=== PATIENT | female | born 1970 | race Caucasian/White ===

== ENCOUNTER 2021-12-16 07:51 | Day surgery (SDC) | payer OTHER, MEDICAID, SELFPAY ==
[2021-12-16] VITALS (15 sets, daily range): BP systolic 77–130; BP diastolic 45–76; PULSE 44–72; RESP 12–20; TEMP 36.2–36.6; O2SAT 94–100; BMI 37.8
[2021-12-16] MEDS: SODIUM CHLORIDE 0.9 % (FLUSH) 10 ML SYRINGE IVF ×2 (08:10→08:35)
[2021-12-16] MEDS: LACTATED RINGERS 1000 ML 1,000 ML 100 ML IV (08:10)
[2021-12-16] MEDS: CEFAZOLIN 2 GM INJ IVP (10:28)
--- NOTE | 2021-12-16 11:47 | W.ANESCHARGE ---
Anesthesia Charges Start Date/Time Anesthesia Start Date: 12/16/21 Anesthesia Start Time: 10:17 Stop Date/Time Anesthesia Stop Date: 12/16/21 Anesthesia Stop Time: 11:51 Summary Emergency: No
--- NOTE | 2021-12-16 11:47 | PM.ORPRC ---
Procedure Note Date of procedure: 12/16/21 Procedure: SURGEON: Brian Bautista MD SENIOR SUSTAINABILITY ADVISOR: GUANACO Kearns PREOPERATIVE DIAGNOSIS: Left knee medial meniscus root tear POSTOPERATIVE DIAGNOSIS: Left knee medial meniscus root tear NAME OF OPERATION: Left knee arthroscopic medial meniscus root repair ANESTHESIA: Spinal ESTIMATED BLOOD LOSS: 0 mL COMPLICATIONS: None SPECIMENS: None DRAINS: None PREOPERATIVE ANTIBIOTICS: Ancef 2 gram INDICATIONS: The patient is a 51-year-old female with a history of left knee medial pain. MRI scan is consistent with a medial meniscus root tear. Despite appropriate nonoperative management, including activity modification, antiinflammatories, aaei-bpa-fabcqtx pain medication, bracing, physical therapy, and injections they continue to have pain and disability. Operative intervention was offered. The risks, benefits and expected outcomes were discussed in detail. These included but were not limited to: Infection, bleeding, injury to blood vessel or nerve, venous thromboembolism. All questions were answered to their satisfaction. PROCEDURE: Spinal anesthesia was administered. The patient was placed supine on the operating room table. The left lower extremity was prepped and draped in the usual sterile fashion. The limb was exsanguinated with the Vance bandage. The pneumatic tourniquet was inflated to 300 mmHg. A standard anterolateral portal was established. The arthroscope was introduced. The working portal was established anteromedially. Diagnostic arthroscopy was performed with findings as follows: The suprapatellar pouch is normal. Articular surface on the patella is normal. Articular surface on the trochlea is normal. The medial gutter is normal. The medial compartment shows a small patch of focal grade 3 change on the medial femoral condyle, normal articular cartilage on the medial tibial plateau. The medial meniscus has a root tear, detaching it from the tibia. The notch shows the ACL to be intact. The lateral compartment shows normal articular cartilage on the lateral femoral condyle and lateral tibial plateau. The lateral meniscus is normal. The lateral gutter is normal. A minimal amount of the posterior horn of the medial meniscus was debrided with the shaver. Unstable chondral flaps on the medial femoral condyle, were debrided with the shaver, taken to a stable base. The knee scorpion was used to pass a fiber link x 2 in the posterior horn of the medial meniscus. The tibial drill guide was used over the footprint of the root. A longitudinal incision over the anteromedial face of the tibia was placed. The flip cutter was drilled into the footprint. The flip cutter was flipped and back cut 10 mm. It was removed and exchanged for a fiber stick. The fiber stick suture loop was brought out the anteromedial portal and was used to shuttle both of the fiber link luggage tag sutures on the posterior horn out the anteromedial tibia. We then tensioned the sutures and fixed them to the tibia with a SwiveLock anchor. This provided an excellent repair of the posterior tibial attachment of the medial meniscus to its anatomic footprint. The power pick was used to microfracture the notch both medially and laterally. Arthroscopic instruments were removed, the portal sites were Steri-Stripped closed, the incision over the tibia was closed with 3-0 Vicryl and 4-0 Monocryl, the knee was infiltrated with 30 mL of 0.25% Marcaine without epinephrine. A dry dressing was applied, the tourniquet was released. Sponge and needle counts were correct x 2. The patient tolerated the procedure well. There were no apparent complications. They were carefully transferred to the hospital bed and taken to the postanesthesia care unit in satisfactory condition. PLAN: The patient will be discharged to home. They will be strict nonweightbearing on the lower extremity for 6 weeks postoperatively. Range of motion will be unrestricted. They will follow up in 1-2 weeks for a wound check.
--- NOTE | 2021-12-16 11:51 | P.NB_ITS ---
Nerve Block Nerve Block Time Seen by Provider: 11:36 Date Seen: 12/16/21 Type of block requested by surgeon for post-operative analgesia: geniculars Side: left Time out performed: Yes Verification of patient name: Yes Verification of date of : Yes Site marking: site marked Name of person performing procedure: DARIEL Skelton Continuous monitoring Was continuous monitoring of O2 sat, B/P, quality assurance monitor final, recorded every 15 minutes?: Yes Procedure Checklist: sterile prep, needles and gloves Ultrasound guided. Images saved: No Medications given in 5ml increments after negative aspiration: Ropivicaine %: 0.5 mL: 10 Needle gauge: 25 Decadron (mg): 10 Precedex (mcg): 20 Patient tolerated procedure well: No Block Charges Block Charge (with Pro Fee): Genicular Nerve Block Use of Ultrasound Machine for Block: No
[2021-12-16] MEDS: fentaNYL 100 MCG/2 ML inj 50 MCG IVP ×2 (11:54→12:06)
--- NOTE | 2021-12-16 12:11 | W.ANESCHARGE ---
Anesthesia Charges Start Date/Time Anesthesia Start Date: 12/16/21 Anesthesia Start Time: 10:17 Stop Date/Time Anesthesia Stop Date: 12/16/21 Anesthesia Stop Time: 11:51 Summary Emergency: No
--- NOTE | 2021-12-16 12:12 | SUR.PHASEI ---
pt having lower back pain where spinal was placed denies any knee pain medication given for pain o2 placed via nc pts bp remains low hob lowered and pt placed in [place] postion fluids increased ill watch bp and treat as needed
[2021-12-16] MEDS: OxyCODONE/APAP 5-325 TABLET PO (12:35)
== END 2021-12-16 11:38 | disposition home or self-care (01) ==
PROVIDERS: PCP Physician Assistant; Visit Provider Orthopaedic Surgery
PROC: (CPT 29882; principal; 2021-12-16 10:30)
DX: M23.222 Derangement of posterior horn of medial meniscus due to old tear or injury, left knee (principal)
CPT/HCPCS: 29881; 01400; 64454; A9270; C1713; J0690; J1100; J2250; J2370; J2400; J2704; J2795; J3010; J7120; L1833

== ENCOUNTER 2022-03-14 08:30 | Outpatient (RCR) | payer OTHER, MEDICAID, SELFPAY ==
--- NOTE | 2022-01-27 09:51 | PT.OPEX ---
PT [place] [facility] PT [facility] Eval Start: 01/27/22 07:52 Freq: Status: Active Protocol: Document 01/27/22 07:52 KLLee (Rec: 01/27/22 09:03 KLV [id number]) E-signed By Marni Dye, PT Physical Therapy Outpatient Evaluation Insurance Information Recert Due Date 03/28/22 Insurance Name Medicaid,Other; See Comments Insurance Information/Comments [facility] choice Medical Diagnosis Left knee scope: medial meniscus root repair DOS Treating Diagnosis Left knee pain, limited knee ROM, impaired L LE strength, antalgic gait Referring MD Bautista Subjective Subjective Ceci reports to PT s/p 6 weeks left medial meniscus root repair DPS 12/16/21. No known injury just gradually started hurting in July 2021. She has been NWB up until this point with B crutches. She had a follow up with Dr. Bautista yesterday who cleared her to progress to WBAT, unrestricted ROM and gradual progression/return to activity as tolerated. She will follow up with MD in 6 weeks. She is cleared to return to work when she feels she is able. She started walking with single crutch yesterday. Overall feeling pretty good, just weak and unsteady at times. 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 She has not done any exercises up until this point . No longer icing but was for 4 weeks. Very occasionally taking OTC pain meds at night. 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 Precautions Therapy Limitations/Systems Review Not Limited Objective Other/Pertinent Objective Knee ROM: -R 0-128 -L 0-12-53 pre 0--71 post Denies radicular symptoms Intact to light touch throughout L LE Incisions healing well: no signs/symptoms of infection Moderate swelling localized around knee, no bruising or erythema Patellar mobility: hypomobile all directions Gait: able to ambulate with single crutch with good stability, initially mid foot strike and limited terminal knee extension but improves with practice SL balance: unable at this time Functional Test Performed & Score LEFS: 27/80 Assessment Assessment/Impression Pt presents with signs and symptoms consistent with s/p L medial meniscus root repair. DOS: 12/16/21. She is now WBAT and may progress ROM and strength as tolerated without restrictions at this time. Anticipated deficits/ impairments in pain, ROM, and strength. Pt would benefit from skilled PT interventions to facilitate return to PLOF including ADLs (donning/ doffing shoes and socks), A/D stairs reciprocally and return to work tasks including pushing/pulling 25-50lb, twisting/turning, squatting/ bending, liftin 25-50lb floor to waist. Primary Functional Limitations ADLs (donning/doffing shoes and socks), A/D stairs reciprocally and return to work tasks including pushing/ pulling 25-50lb, twisting/ turning, squatting/bending, liftin 25-50lb floor to waist Plan of Care Rehabilitation Potential Good Physical Therapy Goals By 4 weeks (04/14/21) Pt will be able to ascend/ descend 1 flight of stairs in order to perform ADLs pain free. Pt will demonstrate full and pain free knee ROM in order to perform all ADLs including don/doffing shoes/socks By 8 weeks (05/12/21) Pt will exhibit 9 pt improvement in LEFS Outcome measure to demonstrate functional improvement and progress towards goals. Pt will tolerate gradual progression back to ADLs with <2/10 pain Patient will transition from crutches to independent gait with normal mechanics. Patient will be able to stand for up to 4 hours with <2/10 pain in order to gradually return to work Patient will demonstrate good squatting mechanics to lift up to 50lb from floor to waist with <2/10 knee pain in order to return to work related tasks. Treatment Plan/Direct Interventions Gait Training,Ice/Cold/ Vasopneumatic,Joint Mobilization,Manual Therapy, Neuromuscular Re-ed,Self-Care/ Home Management,Therapeutic Activities,Therapeutic Exercises Frequency/Duration 2x/wk for 2 weeks, 1x/wk for 4 weeks with additional 2-3 sessions prn based on progress Patient Will Be Discharged From Therapy Completion of LTG(s), Independent w/HEP, Independently Progressing Evaluation Billing Untimed Code Treatment Minutes 15 Complexity Low Certification Information Initial Certification Date 01/27/22 Ending Certification Date 03/28/22 Provider Signature Shows Agreement With POC & Medical Necessity Physician Signature & Date Requested Please Sign/Date Here Physician Comment/Change : Physician NPI Number #
== END 2022-03-14 09:48 | disposition home or self-care (01) ==
PROVIDERS: PCP Physician Assistant; Visit Provider Orthopaedic Surgery
DX: Z98.890 Other specified postprocedural states (principal); Z51.89 Encounter for other specified aftercare
CPT/HCPCS: 97110; 97161

== ENCOUNTER 2022-11-19 20:57 | Emergency (ER) | payer OTHER, MEDICAID, SELFPAY ==
[2022-11-19 21:06] VITALS: BP 120/75; PULSE 89; RESP 18; TEMP 36.7; O2SAT 99; BMI 37.6
--- NOTE | 2022-11-19 21:10 | ED.GENADULT ---
HPI - General Adult General Chief complaint: Extremity Pain/Injury, Lower Stated complaint: R knee pain, thigh pain Time Seen by Provider: 11/19/22 21:09 History of Present Illness HPI narrative: CC: Pain behind right knee pain for last month. worse tonight. able to bear some weight on it. denies injury 52-year-old woman presenting to the emergency department with complaint of right knee pain posterior aspect over this last month. Increasing tonight. No specific injury. She does recall about a month ago experiencing rather severe Charley horse in the posterior right thigh and since that time has had discomfort in the knee. Also sense of fullness behind the knee. Again just got really bad tonight. Does have a history of osteoarthritis on review of record with meniscectomy on the left knee. History of obesity status post gastric bypass. Related Data Home Medications Medication Instructions Recorded Confirmed ferrous sulfate 325 mg (65 mg 325 mg PO DAILY 11/03/21 11/21/22 iron) tablet levothyroxine 112 mcg tablet 112 mcg PO DAILY 11/03/21 11/21/22 lisinopril 20 mg tablet 20 mg PO DAILY 11/03/21 11/21/22 hydrochlorothiazide 12.5 mg tablet 12.5 mg PO DAILY 11/19/22 11/21/22 Allergies Allergy/AdvReac Type Severity Reaction Status Date / Time hydrocodone [From [place]] Allergy Mild Lip Verified 11/21/22 13:23 Swelling NSAIDS (Non-Steroidal Allergy Verified 11/21/22 13:23 Anti-Inflamma Review of Systems Status of ROS: Reports: 6 or more systems reviewed and unremarkable except as noted in History and below PFSH PFS Medical History Raynauds syndrome ?I73.00 - Raynaud's syndrome without gangrene (ICD-10) Obesity ?E66.9 - Obesity, unspecified (ICD-10) Hypothyroidism ?E03.9 - Hypothyroidism, unspecified (ICD-10) Hypertension ?I10 - Essential (primary) hypertension (ICD-10) Osteoarthritis of left knee ?M17.12 - Unilateral primary osteoarthritis, left knee (ICD-10) Tear of medial meniscus of left knee ?S83.242A - Other tear of medial meniscus, current injury, left knee, initial encounter (ICD-10) Surgical History S/P partial hysterectomy ?Z90.711 - Acquired absence of uterus with remaining cervical stump (ICD-10) S/P cholecystectomy ?Z90.49 - Acquired absence of other specified parts of digestive tract (ICD-10) S/P gastric bypass ?Z98.84 - Bariatric surgery status (ICD-10) Social History Smoking Status: Never smoker Do you use any of these nicotine containing products: None How often do you have a drink containing alcohol: monthly or less Alcohol type: hard liquor How many standard drinks containing alcohol do you have on a typical day: 1 or 2 AUDIT-C Alcohol total score: 1 Non-prescribed substance use: denies use Caffeine: Yes (COFFEE) Are you using contraception or practicing any form of control: No (HYSTERECTOMY) Exam Narrative: Exam Narrative: Knees propped on a pillow. Good strength to resisted flexion. I do not feel defect in the biceps femoris tendons. She is tender though to palpation in the lower posterior thigh. Also somewhat behind the knee. I do not appreciate an effusion anteriorly. No erythema. Prominent vasculature/varicosity crossing anteriorly. Rupa's is negative. She is tender though enough that I think limits good knee exam. No laxity to varus or valgus stress of the knee. No significant lower extremity edema. Const: Vital Signs, click to edit/add: Vital Signs - 24 hr 11/19/22 21:06 Temperature 98.0 F Pulse Rate [Right Pulse Oximeter] 89 Respiratory Rate 18 Blood Pressure [Ri ght Upper Arm] 120/75 Pulse Oximetry 99 Oxygen Delivery Me thod Room Air Documenting provider has reviewed patient's vital signs: yes Course Vital Signs Vital signs: Initial Vital Signs Temperature 98.0 F 11/19/22 21:06 Temperature Source Temporal Artery Scan 11/19/22 21:06 Pulse Rate 89 11/19/22 21:06 Respiratory Rate 18 11/19/22 21:06 Blood Pressure 120/75 11/19/22 21:06 Blood Pressure Mean 90 11/19/22 21:06 Blood Pressure Position Sitting 11/19/22 21:06 Pulse Oximetry 99 11/19/22 21:06 Oxygen Delivery Method Room Air 11/19/22 21:06 Vital Signs Temperature 98.0 F 11/19/22 21:06 Pulse Rate 89 11/19/22 21:06 Respiratory Rate 18 11/19/22 21:06 Blood Pressure 120/75 11/19/22 21:06 Pulse Oximetry 99 11/19/22 21:06 Oxygen Delivery Method Room Air 11/19/22 21:06 Temperature 98.0 F 11/19/22 21:06 Pulse Rate 89 11/19/22 21:06 Respiratory Rate 18 11/19/22 21:06 Blood Pressure 120/75 11/19/22 21:06 Pulse Oximetry 99 11/19/22 21:06 Oxygen Delivery Method Room Air 11/19/22 21:06 Medical Decision Making MDM Narrative Medical decision making narrative: I wonder if may have sustained a hamstring strain in this charley horse she described. Differential also includes Reed cyst plus or minus rupture, meniscal injury, osteoarthritis She would like some relief of pain. I am not convinced of a true allergy with hydrocodone. She would like or immediate relief initially requesting injectable hydromorphone as options were discussed. Decided she preferred to go with oral and so was given 2 tabs of Percocet. This did seem to take the edge off and allow her to transition more comfortably. Did have an program director/air personality here and so we did a quick look ultrasound. I did not think this was going to show thrombus of any sort in the right leg but was to evaluate for Reed cyst. Per my discussion with them it was unremarkable. Later upon review by Radiology a suspected cystic structure in the popliteal fossa was noted --see below. Final Report: INDICATION: Posterior knee pain TECHNIQUE: Ultrasound venous duplex lower right extremity. Compression venous exam was performed using cesar-scale, color Doppler, and spectral Doppler imaging. COMPARISON: None. FINDINGS: Sonographic imaging demonstrates the right common femoral, deep femoral, superficial femoral, popliteal, posterior tibial and greater saphenous and the contralateral left common femoral veins to be fully compressible with normal color Doppler blood flow. Small hypoechoic collection, possibly fluid in popliteal space measuring 4.8 x 0.5 x 1.8 cm. This could represent a small popliteal cyst. IMPRESSION: Probable right popliteal cyst, as above, otherwise normal right lower extremity venous ultrasound, no sign of deep venous thrombosis. Dictated by Zoran Ellison MD @ 11/19/2022 10:22:47 PM With initially normal report and delayed radiology over-read of ultrasound, I did proceed with two view x-ray. Looking for bony abnormalities/spurring in particular, possible avulsion fracture. There was posterior radiodense structure behind the knee and what I perceived on my read of rather ragged appearing upper tibial plateau posteriorly though in my discussion with Radiology confirmed incidental finding. Nothing indicative of avulsion fracture. See patient discharge plan Medical Records Medical records reviewed: Yes I reviewed the patient's medical records Discharge Plan Discharge Clinical Impression: Posterior right knee pain, Popliteal cyst Patient Disposition: Home w/ Parent or Adult Condition: Stable Additional Instructions: At this point I would treat as a hamstring strain. Please see handout for exercises and treatment to do regularly. Follow-up if not improved in 10 - 14 days. Apply ice packs 2 - 3 times daily over the next few days. Percocet from [facility] * can follow-up with orthopedics regarding this cystic structure if it continues to be an issue. This may be contributing to pain and I would think at least to that sense of fullness here. Prescriptions: No Action levothyroxine 112 mcg tablet 112 mcg PO DAILY ferrous sulfate 325 mg (65 mg iron) tablet 325 mg PO DAILY lisinopril 20 mg tablet 20 mg PO DAILY hydrochlorothiazide 12.5 mg tablet 12.5 mg PO DAILY Follow Up/Referrals: Faby Whittington PA [Referring] - Stand Alone Forms: My[facility] Info Instructions
--- NOTE | 2022-11-19 21:17 | CRLHL7_ITS ---
For Patients: As a result of the Century Cures Act, medical imaging exams and procedure reports are released immediately into your electronic medical record. You may view this report before your referring provider. If you have questions, please contact your health care provider. INDICATION: Posterior knee pain TECHNIQUE: Ultrasound venous duplex lower right extremity. Compression venous exam was performed using cesar-scale, color Doppler, and spectral Doppler imaging. COMPARISON: None. FINDINGS: Sonographic imaging demonstrates the right common femoral, deep femoral, superficial femoral, popliteal, posterior tibial and greater saphenous and the contralateral left common femoral veins to be fully compressible with normal color Doppler blood flow. Small hypoechoic collection, possibly fluid in popliteal space measuring 4.8 x 0.5 x 1.8 cm. This could represent a small popliteal cyst. IMPRESSION: Probable right popliteal cyst, as above, otherwise normal right lower extremity venous ultrasound, no sign of deep venous thrombosis. Dictated by Zoran Ellison MD @ 11/19/2022 10:22:47 PM (Electronically Signed)
[2022-11-19] MEDS: OxyCODONE/APAP 5-325 TABLET 2 TAB PO (21:49)
--- NOTE | 2022-11-19 21:54 | CRLHL7_ITS ---
For Patients: As a result of the Cures Act, medical imaging exams and procedure reports are released immediately into your electronic medical record. You may view this report before your referring provider. If you have questions, please contact your health care provider. INDICATION: Posterior knee pain, Posterior knee pain fullness TECHNIQUE: Knee radiograph 2 views right COMPARISON: None FINDINGS: Bone: No acute fractures or aggressive bone lesions are identified. Joint: The medial, lateral, and patellofemoral compartments are unremarkable. No significant knee effusion is seen. Soft tissue: Unremarkable. No radiopaque foreign bodies are seen. IMPRESSION: 1. No acute osseous injuries or abnormalities are noted. Dictated by: Jason Sun MD @ 11/19/2022 22:34:38 (Electronically Signed)
== END 2022-11-19 23:35 | disposition home or self-care (01) ==
PROVIDERS: Emergency Provider Family Medicine; PCP Student in an Organized Health Care Education/Training Program
DX: M71.21 Synovial cyst of popliteal space [Baker], right knee (principal)
CPT/HCPCS: 73560; 93971; 99283; 99284; A9270

== ENCOUNTER 2022-11-23 15:15 | Outpatient (CLI) | payer OTHER, MEDICAID, SELFPAY ==
--- NOTE | 2022-11-23 15:30 | MR_ITS ---
[address] [address] Phone:?[phone] Fax:?[phone] Referring Physician Information: Sharif Garcia [address] [facility] [address] Phone:?[phone] Fax:?[phone] Patient:?Ceci Borjas D.O.B:?1970 Sex:?Female Phone:?[phone] [facility] MRN:?[id number] Exam Date:?11/23/2022 EXAM: MRI of the RIGHT KNEE, without contrast CLINICAL HISTORY: Right knee pain. Evaluate for medial meniscal pathology. COMPARISONS: None available. TECHNICAL: MR sequences of the right knee: sagittals: PD, PDFS coronals: PD, STIR axials: PD, T2 FS CONTRAST: None SEDATION: None FINDINGS: Bones: No fracture, bone marrow contusion, or other suspicious bone marrow signal abnormality. 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 Retinacula: The medial and lateral retinacula are intact. Fat pads: The infrapatellar, quadriceps, and prefemoral fat pads are unremarkable. Knee joint: Effusion: Small right knee joint effusion. Popliteal cyst: None. Intra-articular bodies: None. Posteromedial corner: The semimembranosus and pes anserine tendons are intact. Medial compartment: Medial meniscus: There is ill-defined high-grade radial tear of the posterior root of the medial meniscus with immediately adjacent tibial bone marrow edema best seen on coronal series 8 images 21 and 22 and sagittal series 5 and 6 image 18. There is 3 mm of medial meniscal extrusion best seen on coronal series 7 image 18. Cartilage: Intact. Lateral compartment: Lateral meniscus: Intact. Cartilage: Intact. Ligaments: Anterior cruciate ligament: Intact. Posterior cruciate ligament: Intact. Medial collateral ligament: Intact. Posterior oblique ligament: Intact. Fibular collateral ligament: Intact. Posterolateral corner: The distal biceps femoris tendon, iliotibial band, popliteus tendon, popliteus muscle, popliteofibular ligament, and arcuate ligament are intact. Extensor mechanism: Patellar tendon: Intact. Quadriceps tendon: Intact. IMPRESSION: 1. Ill-defined high-grade radial tear of the posterior root of the medial meniscus with immediately adjacent tibial bone marrow edema and 3 mm of medial meniscal extrusion. 2. 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 3. No ligamentous injury or lateral meniscal pathology of the right knee. RCB Electronically signed on 11/24/2022 6:46:00 AM by Gary Zamora M.D. Addendum A Addendum: In addition, there is a moderately sized popliteal cyst. Electronically signed on 11/28/2022 9:54:00 AM by Gary Zamora M.D.
== END 2022-11-23 15:16 | disposition home or self-care (01) ==
PROVIDERS: PCP Student in an Organized Health Care Education/Training Program; Visit Provider Physician Assistant
DX: M25.561 Pain in right knee (principal); S83.241A Other tear of medial meniscus, current injury, right knee, initial encounter; M94.261 Chondromalacia, right knee
CPT/HCPCS: 73721

== ENCOUNTER 2022-12-08 06:08 | Day surgery (SDC) | payer OTHER, MEDICAID, SELFPAY ==
[2022-12-08] VITALS (14 sets, daily range): BP systolic 78–127; BP diastolic 45–77; PULSE 45–68; RESP 14–18; TEMP 36.1–36.8; O2SAT 95–100; BMI 36.0
[2022-12-08] MEDS: LACTATED RINGERS 1000 ML 1,000 ML 100 ML IV (07:02)
[2022-12-08] MEDS: SODIUM CHLORIDE 0.9 % (FLUSH) 10 ML SYRINGE IVF (07:02)
[2022-12-08] MEDS: CEFAZOLIN 2 GM INJ IVP (08:00)
[2022-12-08] MEDS: BUPIVACAINE 0.25% 30 ML INJECTION (08:33)
--- NOTE | 2022-12-08 08:41 | P.ORPRC_ITS ---
Procedure Note Date of procedure: 12/08/22 Procedure: PREOPERATIVE DIAGNOSIS: Right knee medial meniscus root tear POSTOPERATIVE DIAGNOSIS: Right knee medial meniscus tear, medial femoral condyle grade 4 lesion NAME OF OPERATION: Right knee diagnostic arthroscopy, medial femoral condyle chondroplasty SURGEON: Brian Bautista MD DEPUTY CHIEF MAGISTRATE: GUANACO Kearns ANESTHESIA: Spinal ESTIMATED BLOOD LOSS: 0 mL COMPLICATIONS: None SPECIMENS: None DRAINS: None PREOPERATIVE ANTIBIOTICS: Ancef 2 gram INDICATIONS: The patient is a 52-year-old with a history of right knee medial pain. MRI scan is consistent with a medial meniscus root tear. Despite appropriate nonoperative management, including activity modification, antiinflammatories, [id number]-texloim pain medication, bracing, physical therapy, and injections they continue to have pain and disability. Operative intervention was offered. The risks, benefits and expected outcomes were discussed in detail. These included but were not limited to: Infection, bleeding, injury to blood vessel or nerve, venous thromboembolism. All questions were answered to their satisfaction. PROCEDURE: Spinal anesthesia was administered. The patient was placed supine on the operating room table. The right lower extremity was prepped and draped in the usual sterile fashion. The limb was exsanguinated with the Vance bandage. The pneumatic tourniquet was inflated to 300 mmHg. A standard anterolateral portal was established. The arthroscope was introduced. The working portal was established anteromedially. Diagnostic arthroscopy was performed with findings as follows: The suprapatellar pouch is normal. Articular surface on the patella shows a tiny area over the median ridge with a grade 2 fissure. Over the far proximal aspect there is an area of more meaningful grade 2/3 change. Articular surface on the trochlea is normal. The medial has a minimal amount of hyperemic synovitis. The medial compartment shows a large, focal area of grade 4 change measuring 10 mm medial lateral by 18 mm anterior-posterior. There is grade 2 change on the medial tibial plateau. The medial meniscus is detached from the posterior tibia. The notch shows the ACL to be intact. The lateral compartment shows normal articular cartilage on the lateral femoral condyle and lateral tibial plateau. The lateral meniscus is normal. The lateral gutter is normal. Unstable articular cartilage flaps on the edges of the medial femoral condyle defect were debrided with the shaver, taken to a stable base. Given the medial femoral condyle lesion, it was felt that root repair was not indicated. Arthroscopic instruments were removed, the portal sites were Steri-Stripped closed, the knee was infiltrated with 30 mL of 0.25% Marcaine without epinephrine. A dry dressing was applied, the tourniquet was released. Sponge and needle counts were correct x 2. The patient tolerated the procedure well. There were no apparent complications. They were carefully transferred to the hospital bed and taken to the postanesthesia care unit in satisfactory condition. PLAN: The patient will be discharged to home. They may weightbear as tolerates. Range of motion will be unrestricted. They will follow up in the office next week for a wound check.
--- NOTE | 2022-12-08 08:53 | W.ANESCHARGE ---
Anesthesia Charges Start Date/Time Anesthesia Start Date: 12/08/22 Anesthesia Start Time: 07:53 Stop Date/Time Anesthesia Stop Date: 12/08/22 Anesthesia Stop Time: 08:44
[2022-12-08] MEDS: ePHEDrine sulfate 5 MG/ML inj IVP (09:01)
[2022-12-08] MEDS: OxyCODONE/APAP 5-325 TABLET 1 TAB PO (10:15)
== END 2022-12-08 10:40 | disposition home or self-care (01) ==
PROVIDERS: PCP Student in an Organized Health Care Education/Training Program; Visit Provider Orthopaedic Surgery
PROC: (CPT 29882; principal; 2022-12-08 07:45)
DX: S83.241A Other tear of medial meniscus, current injury, right knee, initial encounter (principal); M21.951 Unspecified acquired deformity of right thigh
CPT/HCPCS: 29877; 1400; A9270; J0665; J0690; J2250; J2371; J2405; J2704; J3010; J7120

== ENCOUNTER 2022-12-15 14:03 | Outpatient (RCR) | payer OTHER, MEDICAID, SELFPAY | END 2023-04-14 23:59 | disposition home or self-care (01) | PROVIDERS: PCP Student in an Organized Health Care Education/Training Program; Visit Provider Orthopaedic Surgery | DX: S83.206A Unspecified tear of unspecified meniscus, current injury, right knee, initial encounter (principal); Z98.890 Other specified postprocedural states; M25.561 Pain in right knee; M62.81 Muscle weakness (generalized); Z47.1 Aftercare following joint replacement surgery; Z51.89 Encounter for other specified aftercare | CPT/HCPCS: 97110; 97161 ==

== ENCOUNTER 2023-01-17 09:00 | Day surgery (SDC) | payer OTHER, MEDICAID, SELFPAY ==
[2023-01-17] VITALS (24 sets, daily range): BP systolic 91–139; BP diastolic 46–84; PULSE 42–69; RESP 12–16; TEMP 35.9–36.9; O2SAT 93–100; BMI 38.5
[2023-01-17] MEDS: ACETAMINOPHEN 500 MG TABLET 1000 MG PO ×3 (09:30→20:44)
[2023-01-17] MEDS: OXYCODONE (CR) 10 MG TAB.ER.12H PO (09:30)
[2023-01-17] MEDS: LACTATED RINGERS 1000 ML 1,000 ML 100 ML IV (09:45)
[2023-01-17] MEDS: MIDAZOLAM HCL 1 MG/ML inj IVP (10:45)
[2023-01-17] MEDS: fentaNYL 100 MCG/2 ML inj IVP (10:45)
--- NOTE | 2023-01-17 10:50 | SUR.PREOP ---
TIME?OUT:?1042 PT/RN/MDA?VERIFICATION?OF?SURGICAL?SITE,?PROCEDURE,?AND?CONSENT OBTAINED?PRIOR?TO?INVASIVE?PROCEDURE.
--- NOTE | 2023-01-17 10:55 | P.NB_ITS ---
Nerve Block Nerve Block Time Seen by Provider: 10:50 Date Seen: 01/17/23 Type of block requested by surgeon for post-operative analgesia: geniculars Side: right Time out performed: Yes Verification of patient name: Yes Verification of date of : Yes Site marking: site marked Name of person performing procedure: Jeremias Continuous monitoring Was continuous monitoring of O2 sat, B/P, nuclear monitoring technician, recorded every 15 minutes?: Yes Procedure Checklist: sterile prep, needles and gloves Medications given in 5ml increments after negative aspiration: Ropivicaine %: 0.5 mL: 9 Needle gauge: 25 Patient tolerated procedure well: Yes Block Charges Block Charge (with Pro Fee): Genicular Nerve Block Use of Ultrasound Machine for Block: No
--- NOTE | 2023-01-17 10:55 | P.NB_ITS ---
Nerve Block Nerve Block Time Seen by Provider: 10:50 Date Seen: 01/17/23 Type of block requested by surgeon for post-operative analgesia: adductor canal Side: right Time out performed: Yes Verification of patient name: Yes Verification of date of : Yes Site marking: site marked Name of person performing procedure: Jeremias Continuous monitoring Was continuous monitoring of O2 sat, B/P, radiographer cardiac catheterization, recorded every 15 minutes?: Yes Procedure Checklist: sterile prep, needles and gloves Ultrasound guided. Images saved: Yes Medications given in 5ml increments after negative aspiration: Ropivicaine %: 0.5 mL: 20 Needle gauge: 20 Decadron (mg): 10 Precedex (mcg): 25 Patient tolerated procedure well: Yes Additional comments: Needle noted adjacent to nerve Block Charges Block Charge (with Pro Fee): Femoral Nerve Use of Ultrasound Machine for Block: Yes- US Guidance/pain block
--- NOTE | 2023-01-17 10:56 | W.ANESCHARGE ---
Anesthesia Charges Start Date/Time Anesthesia Start Date: 01/17/23 Anesthesia Start Time: 11:05 Stop Date/Time Anesthesia Stop Date: 01/17/23 Anesthesia Stop Time: 13:25
[2023-01-17] MEDS: TRANEXAMIC ACID 100 MG/ML INJ 1000 MG IV (11:17)
[2023-01-17] MEDS: CEFAZOLIN 2 GM INJ IVP (11:20)
--- NOTE | 2023-01-17 11:41 | SUR.OPER ---
PATIENT QUESTIONS ANSWERED SATISFACTORILY PREOPERATIVELY. PATIENT BROUGHT TO OR #3 PER CART AFTER ADMINISTRATION OF A BLOCK. Patient positioned supine on OR #3 bed. The perioperative team supported arms bilaterally on arm boards. Final approval of positioning by surgeon.
--- NOTE | 2023-01-17 12:40 | CRLHL7_ITS ---
For Patients: As a result of the Cures Act, medical imaging exams and procedure reports are released immediately into your electronic medical record. You may view this report before your referring provider. If you have questions, please contact your health care provider. Indication: POST OP TKA Technique: Two views right knee Findings/Impression: Hardware from a right total knee arthroplasty is in satisfactory position. Bone alignment is normal. No sign of acute fracture. Postop changes are within normal limits. Dictated by Vernon Cosme MD @ 01/18/2023 8:26:05 AM (Electronically Signed)
--- NOTE | 2023-01-17 12:42 | P.ORPRC_ITS ---
Procedure Note Date of procedure: 01/17/23 Procedure: PREOPERATIVE DIAGNOSIS: Right knee osteoarthritis POSTOPERATIVE DIAGNOSIS: Right knee osteoarthritis NAME OF OPERATION: Right total knee arthroplasty SURGEON: Brian Bautista MD [employer] TR[employer] DRIVER: Giuliana Ramos PA-C ANESTHESIA: Spinal ESTIMATED BLOOD LOSS: 0 mL COMPLICATIONS: None SPECIMENS: None DRAINS: None PREOPERATIVE ANTIBIOTICS: Ancef 2 grams, antibiotic impregnated cement IMPLANTS: 1. J&J Attune #4 posterior stabilized femur 2. # 3 fixed-bearing revision tibia with a 14 mm x 50 mm cemented stem 3. # 4 posterior stabilized, 5 mm fixed-bearing polyethylene 4. 35 patella INDICATIONS: The patient is a 52-year-old with a longstanding history of severe, unrelenting right knee pain secondary to a medial meniscus root tear and grade 3/4 lesion on the medial femoral condyle. Despite appropriate nonoperat en management, including activity modification, anti-inflammatories, gyxz-sdi-ldiacok pain medication, bracing, physical therapy, and injections they continue to have pain and disability. Operative intervention was offered. The risks, benefits and expected outcomes were discussed in detail. These included but were not limited to: Infection, bleeding, injury to blood vessel or nerve, venous thromboembolism. All questions were answered to their satisfaction. Use of an diploma dental assistant was necessary throughout the case for patient positioning and safety, soft tissue retraction, and closure. PROCEDURE: Spinal anesthesia was administered. The patient was placed supine on the operating table. The diploma dental assistant made sure the patient was positioned appropriately. The lower extremity was prepped and draped in the usual sterile fashion. The limb was exsanguinated with the Vance bandage. The pneumatic tourniquet was inflated to 300 mmHg. A standard anterior incision was made with the knee in flexion. Subcutaneous dissection was sharply taken through fascial layer #1. Full-thickness medial and lateral flaps were elevated. The diploma dental assistant retracted the soft tissues and protected them throughout the case. A standard medial parapatellar approach was made. The patella was everted. The infrapatellar fat pad was preserved. The menisci and cruciate ligaments were sharply d?brided. Marginal osteophytes were d?brided with the rongeur. The drill was used to penetrate the femoral canal. The canal was aspirated and irrigated with pulse lavage. The intramedullary femoral guide was placed for a 5-degree valgus cut, removing 10 mm off the distal femur. The saw was used to make the cut. Whitesides line and the trans epicondylar axis were marked. The femoral sizing guide was pinned onto the distal femur. Three degrees of external rotation nicely parallels the transepicondylar axis. Pins were placed for posterior referencing. The four-in-one cutting guide was pinned onto the d istal femur. The anterior, posterior, and chamfer cuts were made. The diploma dental assistant protected the collateral ligaments. The box cutting guide was pinned. The box cuts were made. The boxed trial was placed and was an excellent fit. Drill holes for the lugs were made. Attention was then turned to the proximal tibia. The extramedullary tibial guide was placed for a neutral varus/valgus cut with 5 degrees of posterior slope, removing 2 mm based off the medial tibial surface. The diploma dental assistant protected the collateral ligaments and the neurovascular bundle. The saw was used to make the cut. Trial components were placed. The knee was nicely balanced in both flexion and extension. The trial components were removed. The tray was placed in appropriate rotation, parallel to our tibial cutting pins. It was pinned by the diploma dental assistant. The drill x2 were used. The trial stemmed tibial tray was placed. The punch was used. The trial was removed. The punch was used again. We placed a bone plug in the femoral canal. Attention was then turned to the patella. [place] patellar thickness was 20.5 mm. The lobster claw resection guide was used with the 7.5 mm isabel. The saw was used to make the cut. Drill holes were made by the diploma dental assistant. The trial was placed and was an excellent fit. Cancellous surfaces were irrigated with pulse lavage and thoroughly dried by the diploma dental assistant. We cemented the tibial component, then the femoral component. We impacted the 5 mm polyethylene onto the tibial tray. The knee was brought into full extension. We then cemented the patellar component. Excessive cement was removed. The cement was allowed to harden. The knee was taken through a range of motion and was found to be nicely balanced in both flexion and extension. The patella tracks centrally. The diploma dental assistant did a three minute dilute Betadine solution soak. The diploma dental assistant irrigated the wound with 3 liters of normal saline via pulse lavage. The diploma dental assistant reapproximated the extensor mechanism with #1 Vicryl in an interrupted [id number] fashion. The diploma dental assistant then ran the extensor mechanism with a #1 PDO Stratafix. The diploma dental assistant closed the subcutaneous tissues with a 3-0 Stra tafix and the skin with a running 3-0 Stratafix in a subcuticular fashion. Glue was used to seal the skin. The diploma dental assistant placed a dry dressing, SALONI stocking, and Polar Care. Sponge and needle counts were correct x2. The patient tolerated the procedure well. There were no apparent complications. They were carefully transferred to the hospital bed and taken to the postanesthesia care unit in satisfactory condition. PLAN: The patient will be mobilized with physical therapy. Aspirin will be used for DVT prophylaxis. They will be discharged to home once medically appropriate.
--- NOTE | 2023-01-17 13:56 | PC.NURSE ---
discussed low pulse with DARIEL Smith. patient is asymptomatic at this time. Continue to monitor.
[2023-01-17] MEDS: HYDROmorphone 0.5 mg/0.5 ml inj IVP ×3 (14:52→19:49)
[2023-01-17] MEDS: LACTATED RINGERS 1000 ML 1,000 ML 75 ML IV (14:55)
[2023-01-17] MEDS: OXYCODONE 5 MG TABLET PO ×4 (15:47→23:05)
--- NOTE | 2023-01-17 16:28 | PM.IMPN1 ---
Progress Note: A&P Assessment and plan (1) Osteoarthritis of right knee: Status: Acute Plan 1. s/p Right TKA; pain control; diet; dvt ppx per surgery 2. Hx of HTN; hold anithypertensives for now 3 Hx of hypothyroidism; continue synthroid Subjective Date Seen: 01/17/23 Interval history: POSTOPERATIVE DIAGNOSIS: Right knee osteoarthritis NAME OF OPERATION: Right total knee arthroplasty ANESTHESIA: Spinal ESTIMATED BLOOD LOSS: 0 mL the patient is stable after surgery tolerating diet pain controlled no nausea or vomiting Exam Narrative: Exam Narrative: Gen: no acute distress HEENT: NCAT EOMI mmm Neck: Supple CV:bradycardic normal s1 s2 Lungs: CTAB Abd: Soft,nt, nd Neuro: Alert, oriented, CN grossly intact; nonfocal screening?exam Psych: appropriate affect MSK: age appropriate muscle mass Skin; Warm, dry no rash on face Const: Vital Signs, click to edit/add: Vital Signs - 24 hr 01/17/23 09:51 01/17/23 10:45 01/17/23 10:50 Temperature 98.4 F Pulse Rate 50 L 48 L 42 L Respiratory Rate 16 16 14 Blood Pressure 118/69 118/63 111/63 Pulse Oximetry 97 95 95 Oxygen Delivery Me thod Room Air Nasal Cannula Nasal Cannula Oxygen Flow Rate 3 3 01/17/23 10:55 01/17/23 13:21 01/17/23 13:25 Temperature 97 F L Pulse Rate 51 L 61 58 L Respiratory Rate 14 16 12 Blood Pressure 97/60 100/55 L 91/55 L Pulse Oximetry 96 95 93 Oxygen Delivery Me thod Room Air Room Air Oxygen Flow Rate 01/17/23 13:30 01/17/23 13:35 01/17/23 13:40 Temperature Pulse Rate 56 L 50 L 46 L Respiratory Rate 12 12 12 Blood Pressure 98/57 L 93/54 L 102/57 L Pulse Oximetry 95 95 94 Oxygen Delivery Me thod Room Air Oxygen Flow Rate 01/17/23 13:45 01/17/23 13:50 01/17/23 13:55 Temperature Pulse Rate 50 L 44 L 44 L Respiratory Rate 12 12 12 Blood Pressure 100/61 108/58 L 101/64 Pulse Oximetry 97 96 96 Oxygen Delivery Me thod Room Air Oxygen Flow Rate 01/17/23 14:00 01/17/23 14:05 Temperature 96.9 F L Pulse Rate 44 L 51 L Respiratory Rate 12 12 Blood Pressure 107/61 100/58 L Pulse Oximetry 98 98 Oxygen Delivery Me thod Room Air Oxygen Flow Rate
--- NOTE | 2023-01-17 18:27 | PC.NURSE ---
Patient up to the floor at 1415 accompanied by spouse. Patient is alert and oriented x4. 96% on RA. VSS, BP WNL, HR bradycardiac but patient states she is normally meme at baseline. Patient rates her pain 4-8/10. PRN Dilaudid administered x2 with relief, PRN Oxy administered x2 w/relief. Up to BR and up to chair for meals. Tolerating a reg diet. voided x1, Bed change required. Patient able to move toes but still feels numb from spinal. Bilateral teds, plexi pulses applied. Cryocuff in use. LR running at 75 mls/hr. SL when PO adequate. Dressing/TASHA bandage to op site C/D/I. Patient has adhesive allergy so no waterproof dressing applied after surgery.
[2023-01-17] MEDS: CEFAZOLIN 2 GM in 0.9 % SODIUM CHLORIDE Mini-bag 100 ML IVPB (19:03)
[2023-01-17] MEDS: SENNOSIDES 1 TAB TABLET 2 TAB PO (20:43)
[2023-01-17] MEDS: ASPIRIN 81 MG TABLET EC PO (20:44)
[2023-01-18] MEDS: OXYCODONE 5 MG TABLET PO ×5 (00:58→10:07)
[2023-01-18] MEDS: CEFAZOLIN 2 GM in 0.9 % SODIUM CHLORIDE Mini-bag 100 ML IVPB (02:56)
[2023-01-18] MEDS: ACETAMINOPHEN 500 MG TABLET 1000 MG PO ×2 (02:56→09:37)
[2023-01-18 03:00] VITALS: BP 131/56; PULSE 62; RESP 16; TEMP 36.3; O2SAT 97
[2023-01-18] MEDS: LEVOTHYROXINE 112 MCG TABLET PO (06:04)
[2023-01-18 06:36] LABS: Basophils Percent Auto 0.1 % (0.0-3.0); Hematocrit 32.4 % (33.0-51.0); Hemoglobin* 10.6 gm/dL (12.0-16.0); Immature Granulocytes Pct Auto 0.2 %; Lymphocytes Percent Auto 6.9 % (20-44); Mean Corpuscular HGB Conc 33 gm/dL (32-36); Mean Corpuscular Hemoglobin 28 pg (26-34); Mean Corpuscular Volume 86 fL (80-100); Monocytes Percent Auto 4.9 % (0.0-11.0); Neutrophils Percent Auto 87.9 % (42.0-72.0); Platelet Count* 312 K/uL (140-440); RDW Coefficient of Variation % 13.3 % (11.5-15.5); Red Blood Count 3.79 m/uL (4.00-5.20); White Blood Count* 13.27 K/uL (4.50-11.00)
[2023-01-18 06:41] LABS: Slide Review Reflex No
--- NOTE | 2023-01-18 06:56 | PC.NURSE ---
SHIFT NOTE 23-: Pt cooperative, A&O. Afebrile, oxygen saturations >90% on RA. Pain rated 4-5/10, PRN oxycodone given Q2-3 hours with pt reporting adequate relief. Denies N/V, SOB, and CP. Up 1 assist with a walker and tolerating well. Surgical TASHA wrap CDI, cryocuff on continuously.
[2023-01-18 07:05] LABS: Potassium* 4.5 mmol/L (3.6-5.1); Sodium* 139 mmol/L (135-149)
[2023-01-18 07:06] LABS: INR 0.98 (0.91-1.10); Prothrombin Time 13.6 Seconds
[2023-01-18 07:08] LABS: Blood Urea Nitrogen* 14 mg/dL (7-30); Creatinine* 0.6 mg/dL (0.5-1.5); Est. Creatinine Clearance* 85.76; Estimated Glomerular Filt Rate 107 ml/min
[2023-01-18 07:31] VITALS: O2SAT 98
[2023-01-18 07:32] VITALS: BP 131/74; PULSE 53; RESP 16; TEMP 36.2; O2SAT 98
[2023-01-18] MEDS: ASPIRIN 81 MG TABLET EC PO (08:53)
[2023-01-18] MEDS: SENNOSIDES 1 TAB TABLET 2 TAB PO (08:53)
--- NOTE | 2023-01-18 09:13 | PM.ORPN ---
Subjective Subjective Time Seen by Provider: 07:30 Date Seen: 01/18/23 Principal diagnosis: Status post left knee replacement Interval history: Patient is having some discomfort. She states she feels the block has worn off. Ice has been helpful. She did not get much sleep last night. Plan for discharge is today to home. no nausea or vomiting Ortho Exam Const Vital Signs, click to edit/add: Vital Signs - 24 hr 01/17/23 09:51 01/17/23 10:45 01/17/23 10:50 Temperature 98.4 F Pulse Rate 50 L 48 L 42 L Pulse Rate [Left Pulse Oximeter] Respiratory Rate 16 16 14 Blood Pressure 118/69 118/63 111/63 Blood Pressure [Right Arm] Pulse Oximetry 97 95 95 Oxygen Delivery Method Room Air Nasal Cannula Nasal Cannula Oxygen Flow Rate 3 3 01/17/23 10:55 01/17/23 13:21 01/17/23 13:25 Temperature 97 F L Pulse Rate 51 L 61 58 L Pulse Rate [Left Pulse Oximeter] Respiratory Rate 14 16 12 Blood Pressure 97/60 100/55 L 91/55 L Blood Pressure [Right Arm] Pulse Oximetry 96 95 93 Oxygen Delivery Method Room Air Room Air Oxygen Flow Rate 01/17/23 13:30 01/17/23 13:35 01/17/23 13:40 Temperature Pulse Rate 56 L 50 L 46 L Pulse Rate [Left Pulse Oximeter] Respiratory Rate 12 12 12 Blood Pressure 98/57 L 93/54 L 102/57 L Blood Pressure [Right Arm] Pulse Oximetry 95 95 94 Oxygen Delivery Method Room Air Oxygen Flow Rate 01/17/23 13:45 01/17/23 13:50 01/17/23 13:55 Temperature Pulse Rate 50 L 44 L 44 L Pulse Rate [Left Pulse Oximeter] Respiratory Rate 12 12 12 Blood Pressure 100/61 108/58 L 101/64 Blood Pressure [Right Arm] Pulse Oximetry 97 96 96 Oxygen Delivery Method Room Air Oxygen Flow Rate 01/17/23 14:00 01/17/23 14:05 01/17/23 14:30 Temperature 96.9 F L 96.9 F L Pulse Rate 44 L 51 L Pulse Rate [Left Pulse Oximeter] 67 Respiratory Rate 12 12 16 Blood Pressure 107/61 100/58 L Blood Pressure [Right Arm] 104/46 L Pulse Oximetry 98 98 98 Oxygen Delivery Method Room Air Room Air Oxygen Flow Rate 01/17/23 14:45 01/17/23 14:46 01/17/23 15:00 Temperature 96.7 F L 96.9 F L Pulse Rate 43 L Pulse Rate [Left Pulse Oximeter] 67 Respiratory Rate 16 16 Blood Pressure Blood Pressure [Right Arm] 113/70 112/66 Pulse Oximetry 97 98 Oxygen Delivery Method Room Air Room Air Oxygen Flow Rate 01/17/23 15:00 01/17/23 15:00 01/17/23 15:15 Temperature 96.9 F L 96.9 F L Pulse Rate Pulse Rate [Left Pulse Oximeter] 67 60 50 L Respiratory Rate 16 16 16 Blood Pressure Blood Pressure [Right Arm] 123/77 116/83 Pulse Oximetry 98 98 Oxygen Delivery Method Room Air Room Air Oxygen Flow Rate 01/17/23 15:30 01/17/23 16:00 01/17/23 17:00 Temperature 96.9 F L 96.9 F L 96.9 F L Pulse Rate Pulse Rate [Left Pulse Oximeter] 55 L 69 69 Respiratory Rate 16 16 16 Blood Pressure Blood Pressure [Right Arm] 110/69 133/80 139/77 Pulse Oximetry 97 100 100 Oxygen Delivery Method Room Air Room Air Room Air Oxygen Flow Rate 01/17/23 18:00 01/17/23 23:00 01/17/23 23:00 Temperature 96.9 F L Pulse Rate Pulse Rate [Left Pulse Oximeter] 64 50 L Respiratory Rate 16 Blood Pressure Blood Pressure [Right Arm] 122/84 Pulse Oximetry 96 99 Oxygen Delivery Method Room Air Oxygen Flow Rate 01/17/23 23:00 01/18/23 03:00 01/18/23 07:31 Temperature 97.2 F L 97.4 F L Pulse Rate Pulse Rate [Left Pulse Oximeter] 50 L 62 Respiratory Rate 16 16 Blood Pressure Blood Pressure [Right Arm] 127/57 L 131/56 L Pulse Oximetry 99 97 98 Oxygen Delivery Method Room Air Room Air Oxygen Flow Rate 01/18/23 07:32 Temperature 97.1 F L Pulse Rate Pulse Rate [Left Pulse Oximeter] 53 L Respiratory Rate 16 Blood Pressure Blood Pressure [Right Arm] 131/74 Pulse Oximetry 98 Oxygen Delivery Method Room Air Oxygen Flow Rate Assessment and Plan Assessment and plan (1) Status post right knee replacement: Problem details: 01/17/2023 Status: Acute Assessment and Plan: Plan for discharge is today to home if they meet discharge criteria. DVT prophylaxis includes aspirin 81 mg twice daily x1 month, Vince stockings x1 month may remove for 1 hr per day, frequent ambulation Remove dressing in 1 week. Observe wound and phone Orthopedics with any questions or concerns Return to clinic in 1 week for a wound check Return to clinic in 6 weeks with surgeon Minimize narcotic use. Wean off and discontinue soon as possible. Activities as tolerated. No strenuous activity. Outpatient physical therapy as scheduled. Ice and elevate the operative extremity. No restriction on ice. She gets lip swelling with [place]. She has allergies to adhesives, therefore Webril an Bert bandage was used along with surgical glue. She has not had problems with surgical glue in the past. She feels her block is worn off, told her that it is likely still working for her somewhat. I would expect the pain to worsen over the next several days. Ecchymosis and swelling will also worsen over this next week. She is informed of this. We will use oxycodone and Tylenol for pain at home.
--- NOTE | 2023-01-18 10:44 | PC.NURSE ---
PATIENT DISCHARGED AT 1030 TODAY WITH TRANSPORTATION PROVIDED BY . [facility] [employer] [employer] REVIEWED DISCHARGE PAPERWORK WITH PATIENT ALONG WITH INFORMATION OF LAST GIVEN PRN OXYCODONE TIME OF 1007. BOWEL SOUNDS ACTIVE IN ALL FOUR QUADRANTS AND LUNG SOUNDS HAVE BEEN CLEAR TO ALL LOBES BILATERALLY. PATIENT HAS BEEN DENYING ANY NUMBNESS OR TINGLING WHEN ASKED. PATIENT HAS BEEN COMPLIANT WITH USE OF BILATERAL SALONI STOCKINGS AND STAFF ENCOURAGED IMPORTANCE OF AMBULATING EVERY HOUR TO CONTINUE AFTER DISCHARGE. PATIENT HAS FOLLOW UP APPOINTMENT SCHEDULED WITH KINJAL OCAMPO ON 01/25/23 AT [address]00. TASHA WRAP IN PLACE TO R KNEE WITH NO DRAINAGE OBSERVED. PATIENT COMPLETED DRESSING WITH OT STAFF THIS MORNING PRIOR TO DISCHARGE. MEDICATIONS REVIEWED UPON DISCHARGE AND WILL BE FILLED AT [facility] IN [place].
--- NOTE | 2023-01-26 10:51 | W.ANESCHARGE ---
Anesthesia Charges Start Date/Time Anesthesia Start Date: 01/17/23 Anesthesia Start Time: 11:05 Stop Date/Time Anesthesia Stop Date: 01/17/23 Anesthesia Stop Time: 13:25
== END 2023-01-18 10:30 | disposition home or self-care (01) ==
LOC: OR 09:01 → MEDSURG 09:03
PROVIDERS: PCP Family Medicine; Visit Provider Orthopaedic Surgery
PROC: (CPT 27447; principal; 2023-01-17 11:00)
DX: M17.11 Unilateral primary osteoarthritis, right knee (principal); G89.18 Other acute postprocedural pain; I10 Essential (primary) hypertension; E03.9 Hypothyroidism, unspecified
CPT/HCPCS: 27447; 01402; 36415; 64447; 64454; 73560; 76942; 82565; 84132; 84295; 84520; 85025; 85610; 97110; 97116; 97161; 97165; 97530; 97535; A9270; C1776; J0690; J1100; J1170; J2250; J2405; J2704; J2795; J3010; J7120

== ENCOUNTER 2023-01-18 22:35 | Observation (INO) | payer OTHER, MEDICAID, SELFPAY ==
[2023-01-18 22:51] VITALS: BP 138/65; PULSE 72; RESP 24; TEMP 37.1; O2SAT 95; BMI 37.0
--- NOTE | 2023-01-18 23:01 | ED.GENADULT ---
HPI - General Adult General Chief complaint: Extremity Pain/Injury, Lower Stated complaint: knee pain, surgery 01/17 Time Seen by Provider: 01/18/23 22:50 History of Present Illness HPI narrative: Pt aox4, ABCs intact. Patient arrives from home with family for evaluation of uncontrolled right leg pain 1 day post op of right knee surgery. Patient is taking Tylenol (last at 2030), Oxycodone ( last at 1740), and dilaudid ( last at 2049) at home without relief. 52-year-old woman presenting to the emergency department complaint of persistent left knee pain since surgery yesterday. She had a right total knee yesterday. Following the block wearing off just has not been able to get comfortable. She has not been able to sleep. Called in for help with pain and was given Dilaudid on top of the oxycodone. Has also been taking acetaminophen. Has been flushed but has not had a fever. No drainage. Not specifically short of breath. Has been attending physical therapy. Related Data Home Medications Medication Instructions Recorded Confirmed ferrous sulfate 325 mg (65 mg 325 mg PO DAILY 11/03/21 01/25/23 iron) tablet levothyroxine 112 mcg tablet 112 mcg PO DAILY 11/03/21 01/25/23 lisinopril 20 mg tablet 20 mg PO DAILY 11/03/21 01/25/23 calcium citrate 315 mg-vitamin D3 1 tab PO TID 12/07/22 01/25/23 5 mcg (200 unit) tablet (Calcium Citrate + D) multivitamin 1 tab PO DAILY 12/07/22 01/25/23 vitamin B complex (B 1 tab PO DAILY 12/07/22 01/25/23 Complex-Vitamin B12 tablet) Previous Rx's Medication Instructions Recorded aspirin 81 mg chewable tablet 81 mg PO BID for DVT prophylaxis 01/17/23 (Aspirin Childrens) 30 days #60 tabs sennosides 8.6 mg tablet (Senna 17.2 mg (2 x 8.6 mg) PO BID PRN 01/17/23 Lax) constipation #100 tabs acetaminophen 325 mg tablet 650 mg (2 x 325 mg) PO QID 14 days 01/19/23 #112 tabs hydroxyzine pamoate 25 mg capsule 25 mg PO QID 7 days #28 caps 01/19/23 omeprazole 20 mg capsule,delayed 20 mg PO DAILY #14 caps 01/19/23 release Allergies Allergy/AdvReac Type Severity Reaction Status Date / Time hydrocodone [From [facility]] Allergy Mild Lip Verified 01/25/23 09:03 Swelling adhesive Allergy Hives Verified 01/25/23 09:03 NSAIDS (Non-Steroidal Allergy Verified 01/25/23 09:03 Anti-Inflamma Review of Systems Status of ROS: Reports: 6 or more systems reviewed and unremarkable except as noted in History and below PFSH PFS Medical History Restless leg syndrome ?G25.81 - Restless legs syndrome (ICD-10) Pneumonia ?J18.9 - Pneumonia, unspecified organism (ICD-10) Nodular basal cell carcinoma ?C44.91 - Basal cell carcinoma of skin, unspecified (ICD-10) Menorrhagia ?N92.0 - Excessive and frequent menstruation with regular cycle (ICD-10) GERD (gastroesophageal reflux disease) ?K21.9 - Gastro-esophageal reflux disease without esophagitis (ICD-10) Depression ?F32.A - Depression, unspecified (ICD-10) Anemia ?D64.9 - Anemia, unspecified (ICD-10) Raynauds syndrome ?I73.00 - Raynaud's syndrome without gangrene (ICD-10) Obesity ?E66.9 - Obesity, unspecified (ICD-10) Hypothyroidism ?E03.9 - Hypothyroidism, unspecified (ICD-10) Hypertension ?I10 - Essential (primary) hypertension (ICD-10) Osteoarthritis of left knee ?M17.12 - Unilateral primary osteoarthritis, left knee (ICD-10) Tear of medial meniscus of left knee ?S83.242A - Other tear of medial meniscus, current injury, left knee, initial encounter (ICD-10) Surgical History S/P right knee arthroscopy (12/08/22) ?Z98.890 - Other specified postprocedural states (ICD-10) S/P left knee arthroscopy (12/16/21) ?Z98.890 - Other specified postprocedural states (ICD-10) Previous section ?Z98.891 - History of uterine scar from previous surgery (ICD-10) S/P partial hysterectomy ?Z90.711 - Acquired absence of uterus with remaining cervical stump (ICD-10) S/P cholecystectomy ?Z90.49 - Acquired absence of other specified parts of digestive tract (ICD-10) S/P gastric bypass ?Z98.84 - Bariatric surgery status (ICD-10) Social History (Reviewed 01/25/23 @ 09:07 by Shantell Holden ~ [facility], [facility]) What is your current living situation?: I presently have a place to live Problems where you live: no known problems Problems where you live details: NA In the past 12 months, utilities in danger of being shut off: no In past 12 months, lack of transportation kept you from medical appts, meetings, work, or getting things needed for daily living: no In the past 12 mos, have been you worried that your food would run out before you had money to buy more?: never true In the past 12 mos, the food you bought just didn't last and you didn't have money to buy more?: never true Highest level of school completed/degree received: 12th grade, no diploma Smoking Status: Never smoker Do you use any of these nicotine containing products: None How often do you have a drink containing alcohol: monthly or less Alcohol type: hard liquor How many standard drinks containing alcohol do you have on a typical day: 1 or 2 How often do you have six or more drinks on one occasion: Never AUDIT-C Alcohol total score: 1 Non-prescribed substance use: denies use Caffeine: Yes How often does anyone, including family, friends and others, physically hurt you: never How often does anyone, including family, friends and others, insult or talk down to you: never How often does anyone, including family, friends and others, threaten you with harm: never How often does anyone, including family, friends and others, scream or curse at you: never Are you using contraception or practicing any form of control: No (HYSTERECTOMY) service: No Exam Narrative: Exam Narrative: Clearly uncomfortable. Quite restless in discomfort. Cheeks are flushed. Examination of the right leg shows Telfa over anterior knee surgical incision. Moderately swollen. Does not appear to have cellulitic change around it. There is some blotchy well-demarcated erythema superior to the Telfa pad that seems consistent with reaction to adhesive. She does have an adhesive allergy. When I lift the Telfa slightly she gasps in discomfort. There is some sticking of the Telfa to surgical glue I think. Const: Vital Signs, click to edit/add: Vital Signs - 24 hr 01/18/23 22:51 01/19/23 00:46 01/19/23 00:46 Temperature 98.8 F Pulse Rate [Pulse Oximeter] 72 Respiratory Rate 24 20 Blood Pressure [Ri ght Upper Arm] 138/65 Pulse Oximetry 95 88 89 Oxygen Delivery Me thod Room Air Room Air Room Air Oxygen Flow Rate 01/19/23 00:46 Temperature Pulse Rate [Pulse Oximeter] Respiratory Rate Blood Pressure [Ri ght Upper Arm] Pulse Oximetry 98 Oxygen Delivery Me thod Nasal Cannula Oxygen Flow Rate 2 Documenting provider has reviewed patient's vital signs: yes Course Vital Signs Vital signs: Initial Vital Signs Temperature 98.8 F 01/18/23 22:51 Temperature Source Temporal Artery Scan 01/18/23 22:51 Pulse Rate 72 01/18/23 22:51 Pulse Rhythm Regular 01/18/23 22:51 Respiratory Rate 24 01/18/23 22:51 Blood Pressure 138/65 01/18/23 22:51 Blood Pressure Mean 89 01/18/23 22:51 Pulse Oximetry 95 01/18/23 22:51 Oxygen Delivery Method Room Air 01/18/23 22:51 Vital Signs Temperature 98.8 F 01/18/23 22:51 Pulse Rate 72 01/18/23 22:51 Respiratory Rate 24 01/18/23 22:51 Blood Pressure 138/65 01/18/23 22:51 Pulse Oximetry 95 01/18/23 22:51 Oxygen Delivery Method Room Air 01/18/23 22:51 Temperature 98.7 F 01/19/23 16:08 Pulse Rate 69 01/19/23 16:08 Respiratory Rate 14 01/19/23 16:08 Blood Pressure 90/35 L 01/19/23 16:08 Pulse Oximetry 96 01/19/23 16:08 Oxygen Delivery Method Room Air 01/19/23 16:08 Oxygen Flow Rate 2 01/19/23 00:46 Medical Decision Making MDM Narrative Medical decision making narrative: Will try to alleviate some pain. I think majority of this is due to postoperative swelling. Hopefully can get ahead of this pain and then she can manage more on her own. Complicated by allergy to NSAIDs as well (verify that this is only due to gastric bypass) I doubt that this is infectious at this point. Ordering IV fluids Dilaudid lorazepam ketamine infusion This combination of medication did not appear to initially make a difference however she has become more sleepy and more relaxed now finally though some time after completing the the ketamine infusion. She has some well-demarcated splotchy rash on the left forearm that is new. Hydroxyzine and diphenhydramine ordered. This may be allergic and the hydroxyzine will augment opiate pain effect. Re-examination though of right knee: Over this last hour or I can appreciate much more swelling. Is soft and still exquisitely tender. There is some vascular prominence now evident over the upper aspect of the lower leg/tibia that . I would have some concern of hemarthrosis in this case; other inflammatory fluid as well. Either way quick accumulation would cause significant pain I would think. Have discussed with Orthopedics on-call anticipating admission for pain control and re-evaluation in the morning by Orthopedics. I also discussed with hospitalist and Orthopedics potentially relieving fluid from this joint; Ortho would like to 1st evaluate themselves. They acknowledge that the did have some concerns of challenge postoperative pain management given root meniscal tear and lack of prior/longstanding osteoarthritic-related pain. Will be admitted for pain management further evaluation by Orthopedics Accepted by on-call hospitalist. Discharge Plan Discharge Clinical Impression: Post-operative pain, Joint swelling Patient Disposition: Admitted As Observation Condition: Stable Activity Level: Activity as Tolerated and No strenuous activity Discharge Diet: Regular
[2023-01-18] MEDS: HYDROmorphone 0.5 mg/0.5 ml inj 1 MG IVP (23:34)
[2023-01-18] MEDS: LORazepam 2 MG/ML inj 0.5 MG IVP (23:37)
[2023-01-18] MEDS: KETAMINE HCL 20 MG in 0.9 % SODIUM CHLORIDE 100 ml 100 ML 300.6 MG IVPB (23:42)
[2023-01-18] MEDS: 0.9 % SODIUM CHLORIDE 1000 ml 1,000 ML 2000 ML IV (23:44)
--- NOTE | 2023-01-18 23:49 | ED.NURSE ---
patient states that she is not getting any relief from the pain medications. MD agee notified
[2023-01-19] VITALS (8 sets, daily range): BP systolic 90–152; BP diastolic 35–76; PULSE 60–86; RESP 14–20; TEMP 36.7–37.1; O2SAT 88–98; BMI 37.0
[2023-01-19] MEDS: KETOROLAC 30 MG/ML inj IVP (00:20)
[2023-01-19] MEDS: diphenhydrAMINE 50 MG/ML inj 25 MG IVP (00:53)
[2023-01-19] MEDS: hydrOXYzine pamoate 25 MG CAPSULE PO ×4 (00:53→17:06)
--- NOTE | 2023-01-19 01:24 | ED.NURSE ---
patient report given to medical insurance claims processor. Patient going to room 279
--- NOTE | 2023-01-19 03:03 | PM.IMHP1 ---
Hospitalist- H&P: HPI History of Present Illness Date Seen: 01/19/23 Chief complaint: knee pain, surgery 01/17 Narrative: Ceci Borjas is a 52 year old female who is seen as an interactive telehealth visit. Filomena has a significant past medical history of just having a right total knee arthroplasty done on Monday, 01/17. Filomena states that she was doing well after surgery, but over the last 2 days she has been having increasing right knee pain. She states that she did do physical therapy today but the pain was quite severe and she rated it a 10 out of 10. She states she may have also had a minor fever and some chills. She has noted some increasing swelling around the knee and possibly some increased erythema. She has not noticed any drainage from the wound. She has been able to do her daily exercises, but her pain became very severe today and she presented to the emergency room for further evaluation. In the emergency room, she was evaluated and given multiple symptomatic pain medications. Orthopedics was contacted and they did advise to admit the patient overnight for observation and they would see the patient in the morning for further evaluation of the joint with the severe pain. At the time I am seeing Filomena, she states her pain is better controlled with the medications that she was given in the emergency room and now rates her pain a 4 out of 10. She is somewhat somnolent with the pain medications, but otherwise denies any other acute complaints or problems at the time I am seeing her. Review of Systems Status of ROS: Reports: 10 or more systems reviewed and unremarkable except as noted in History and below Const: Reports: chills Musculo: Reports: joint pain, limited range of motion and joint swelling PFSH PFS Medical History Restless leg syndrome ?G25.81 - Restless legs syndrome (ICD-10) Pneumonia ?J18.9 - Pneumonia, unspecified organism (ICD-10) Nodular basal cell carcinoma ?C44.91 - Basal cell carcinoma of skin, unspecified (ICD-10) Menorrhagia ?N92.0 - Excessive and frequent menstruation with regular cycle (ICD-10) GERD (gastroesophageal reflux disease) ?K21.9 - Gastro-esophageal reflux disease without esophagitis (ICD-10) Depression ?F32.A - Depression, unspecified (ICD-10) Anemia ?D64.9 - Anemia, unspecified (ICD-10) Raynauds syndrome ?I73.00 - Raynaud's syndrome without gangrene (ICD-10) Obesity ?E66.9 - Obesity, unspecified (ICD-10) Hypothyroidism ?E03.9 - Hypothyroidism, unspecified (ICD-10) Hypertension ?I10 - Essential (primary) hypertension (ICD-10) Osteoarthritis of left knee ?M17.12 - Unilateral primary osteoarthritis, left knee (ICD-10) Tear of medial meniscus of left knee ?S83.242A - Other tear of medial meniscus, current injury, left knee, initial encounter (ICD-10) Surgical History S/P right knee arthroscopy (12/08/22) ?Z98.890 - Other specified postprocedural states (ICD-10) S/P left knee arthroscopy (12/16/21) ?Z98.890 - Other specified postprocedural states (ICD-10) Previous section ?Z98.891 - History of uterine scar from previous surgery (ICD-10) S/P partial hysterectomy ?Z90.711 - Acquired absence of uterus with remaining cervical stump (ICD-10) S/P cholecystectomy ?Z90.49 - Acquired absence of other specified parts of digestive tract (ICD-10) S/P gastric bypass ?Z98.84 - Bariatric surgery status (ICD-10) Social History What is your current living situation?: I presently have a place to live Problems where you live: no known problems Problems where you live details: NA In the past 12 months, utilities in danger of being shut off: no In past 12 months, lack of transportation kept you from medical appts, meetings, work, or getting things needed for daily living: no In the past 12 mos, have been you worried that your food would run out before you had money to buy more?: never true In the past 12 mos, the food you bought just didn't last and you didn't have money to buy more?: never true Highest level of school completed/degree received: 12th grade, no diploma Smoking Status: Never smoker Do you use any of these nicotine containing products: None How often do you have a drink containing alcohol: monthly or less Alcohol type: hard liquor How many standard drinks containing alcohol do you have on a typical day: 1 or 2 How often do you have six or more drinks on one occasion: Never AUDIT-C Alcohol total score: 1 Non-prescribed substance use: denies use Caffeine: Yes How often does anyone, including family, friends and others, physically hurt you: never How often does anyone, including family, friends and others, insult or talk down to you: never How often does anyone, including family, friends and others, threaten you with harm: never How often does anyone, including family, friends and others, scream or curse at you: never Are you using contraception or practicing any form of control: No (HYSTERECTOMY) service: No Meds Home Medications and Allergies Home Medications Medication Instructions Recorded Confirmed Type ferrous sulfate 325 mg (65 mg 325 mg PO DAILY 11/03/21 01/18/23 History iron) tablet levothyroxine 112 mcg tablet 112 mcg PO DAILY 11/03/21 01/18/23 History lisinopril 20 mg tablet 20 mg PO DAILY 11/03/21 01/18/23 History hydrochlorothiazide 12.5 mg tablet 12.5 mg PO DAILY 11/19/22 01/18/23 History calcium citrate 315 mg-vitamin D3 1 tab PO TID 12/07/22 01/18/23 History 5 mcg (200 unit) tablet (Calcium Citrate + D) multivitamin 1 tab PO DAILY 12/07/22 01/18/23 History vitamin B complex (B 1 tab PO DAILY 12/07/22 01/18/23 History Complex-Vitamin B12 tablet) Allergies Allergy/AdvReac Type Severity Reaction Status Date / Time hydrocodone [From [place]] Allergy Mild Lip Verified 01/18/23 22:50 Swelling adhesive Allergy Hives Verified 01/18/23 22:50 NSAIDS (Non-Steroidal Allergy Verified 01/18/23 22:50 Anti-Inflamma Exam Narrative: Exam Narrative: GENERAL: ?vital signs reviewed, well developed and nourished HEENT: pupils are equal round and reactive to light, extraocular movements are grossly within normal limits and oral mucosa is moist. NECK: Supple without lymphadenopathy or thyromegaly according to nursing staff examination observation HEART: Regular rate and rhythm without any rubs, murmurs or gallops.? LUNGS: Clear to auscultation bilaterally with good air movement throughout ABDOMEN: Observation from nurse assisted exam, abdomen appears soft, nontender, and nondistended with Positive bowel sounds noted. EXTREMITIES: There is postsurgical evidence over her right knee. When this is unwrapped and the bandages lifted, there is no drainage present. There is no significant erythema surrounding the wound. There is some minor edema and minor effusion noted that seems to be consistent with normal postoperative appearance. There is a fair amount of pain with any movement of the knee. SKIN:? Observed warm and dry with color normal NEURO: Alert, awake and oriented ?3. Answers all questions appropriately. No focal neuro deficits are noted. PSYCH: ?Affect anxious and somnolent Const: Vital Signs, click to edit/add: Vital Signs - 24 hr 01/18/23 22:51 01/19/23 00:46 01/19/23 00:46 Temperature 98.8 F Pulse Rate [Pulse Oximeter] 72 Respiratory Rate 24 20 Blood Pressure [Ri ght Arm] Blood Pressure [Ri ght Upper Arm] 138/65 Pulse Oximetry 95 88 89 Oxygen Delivery Me thod Room Air Room Air Room Air Oxygen Flow Rate 01/19/23 00:46 01/19/23 01:25 01/19/23 01:49 Temperature 98.0 F Pulse Rate [Pulse Oximeter] 70 Respiratory Rate 20 16 Blood Pressure [Ri ght Arm] 129/67 Blood Pressure [Ri ght Upper Arm] 141/67 H Pulse Oximetry 98 97 Oxygen Delivery Me thod Nasal Cannula Room Air Oxygen Flow Rate 2 Documenting provider has reviewed patient's vital signs: yes Assessment and Plan Assessment and plan (1) Status post right knee replacement: Problem comment: 01/17/2023 Status: Acute (2) Post-operative pain: Status: Acute (3) Thrush: Status: Acute Plan At this time Filomena has been admitted to the medical service. She does have a significant amount of pain that is hindering her from doing her ADLs. I would like to have orthopedics see Filomena in the a.m. for further evaluation. I will continue with the oral and IV pain medications for symptomatic relief. It does appear that she has a slight leukocytosis and I will continue to watch for any sign of acute infection. She does have some minor erythema around her knee, but this seems to be of expected erythema from a postoperative standpoint and does not look to be an acute cellulitis currently. If she should have worsening leukocytosis, fever or other signs and symptoms of infection, would not hesitate to start antibiotics. She does have some oral thrush and I will start some nystatin swish and swallow for treatment. I have discussed this plan with Filomena and she is agreeable to proceed. Again, we will continue to look for any new development of signs or symptoms of infection. We will continue to follow closely from medical standpoint and will await orthopedic consultation evaluation in a.m. I have addressed Code Status with Filomena and she does desire FULL CODE.? This will be ordered as per her wishes. Telehealth Visit:? Today's History and Physical is provided via interactive telehealth by Keaton Mccann MD.? Patient is located at [facility].? Provider is located at [facility].? Nursing staff assisted with the patient's exam. The visit being done today meets criteria for a telehealth visit and the patient or patient?s parent/guardian is aware the visit is a telehealth visit. Camera Start Time: 237 Camera End Time: 251 Medical Complexity: Moderate
--- NOTE | 2023-01-19 06:37 | PC.NURSE ---
Patient admitted to floor at 0135 with report of increased right knee pain not relieved with home medication. Patient had right TKA on 01/17/2023, patient discharge 01/18 around 10am. After returning home patient reports that her pain continued to increase and pain was not being relieved with home oxycodone. Patient placed call to orthopedic investor relations coordinator, she received a new order for dilaudid. Patient utilized medication without any relief of pain so presented in the ER. Patient and family( mom Syeda and niece Nuha) reporting that pain was severe 10/10 pain and hypersensitivity to touch on right knee. patient received medications in the ER and upon arrival to /S floor patient was reporting pain at 4/10, regimen received was effective for pain. Patient states that 4/10 is an acceptable pain level. Right knee edematous, mild redness noted. [facility] hospitalist had financial writer remove dressing to observe incision. Incision is clean, free of any drainage, well approximated and free of any signs or symptoms of infection. Slept well after settled in room. Transferred with minimal assist x 1, gait belt and walker. Ambulates with SBA.
[2023-01-19] MEDS: lisinopriL 20 MG TABLET PO (08:33)
[2023-01-19] MEDS: HYDROmorphone 0.5 mg/0.5 ml inj IVP ×2 (08:33→13:54)
[2023-01-19 08:37] LABS: Basophils Absolute Auto 0.03 K/uL (0.00-0.30); Basophils Percent Auto 0.4 % (0.0-3.0); Eosinophils Absolute Auto 0.05 K/uL (0.00-0.50); Eosinophils Percent Auto 0.7 % (0.0-7.0); Hematocrit 30.5 % (33.0-51.0); Hemoglobin* 9.9 gm/dL (12.0-16.0); Immature Granulocytes Abs Auto 0.03 K/uL (0.00-0.30); Immature Granulocytes Pct Auto 0.4 %; Lymphocytes Absolute Auto 1.59 K/uL (0.90-2.90); Lymphocytes Percent Auto 22.1 % (20-44); Mean Corpuscular HGB Conc 33 gm/dL (32-36); Mean Corpuscular Hemoglobin 28 pg (26-34); Mean Corpuscular Volume 86 fL (80-100); Monocytes Percent Auto 7.8 % (0.0-11.0); Neutrophils Absolute Auto 4.93 K/uL (1.7-7.0); Neutrophils Percent Auto 68.6 % (42.0-72.0); Platelet Count* 268 K/uL (140-440); RDW Coefficient of Variation % 13.8 % (11.5-15.5); Red Blood Count 3.54 m/uL (4.00-5.20); White Blood Count* 7.19 K/uL (4.50-11.00)
[2023-01-19] MEDS: ACETAMINOPHEN 325 MG TABLET 650 MG PO ×3 (08:39→17:06)
[2023-01-19 08:41] LABS: Slide Review Reflex No
[2023-01-19] MEDS: SODIUM CHLORIDE 0.9 % (FLUSH) 10 ML SYRINGE 5 ML IVF (08:43)
[2023-01-19 09:09] LABS: Creatinine* 0.6 mg/dL (0.5-1.5); Estimated Glomerular Filt Rate 107 ml/min
[2023-01-19 09:12] LABS: C Reactive Protein* 7.8 mg/dL (0.5-1.0)
[2023-01-19] MEDS: LEVOTHYROXINE 112 MCG TABLET PO (09:27)
[2023-01-19] MEDS: TRAMADOL HCL 50 MG TABLET PO (11:48)
--- NOTE | 2023-01-19 11:59 | P.ORPN_ITS ---
Subjective Subjective Time Seen by Provider: 11:59 Date Seen: 01/19/23 Principal diagnosis: Status post right knee replacement on 01/17/23, readmitted for pain contro Interval history: Patient is comfortable currently. She is drowsy. She got 5 hours of sleep. Ortho Exam Narrative Exam Narrative: Alert and oriented x3. Drowsy. Patient is in no acute distress. Converses without labored breathing. Hearing is grossly intact. Ambulates with a walker. Examination of the right knee shows incision is intact. Telfa covers the wound. Surgical glue covers the wound. There is no drainage or erythema or sign of infection. No ecchymosis. No to palpation about the knee. Bilateral calves are soft and nontender. Mild edema. Mild to moderate effusion. Vince stockings are in place. Strong quad strength. No foot drop. Strong pedal pulses DP and PT. CMS intact right lower extremity. Const Vital Signs, click to edit/add: Vital Signs - 24 hr 01/18/23 22:51 01/19/23 00:46 01/19/23 00:46 Temperature 98.8 F Pulse Rate [Left Pulse Oximeter] Pulse Rate [Pulse Oximeter] 72 Respiratory Rate 24 20 Blood Pressure [Right Arm] Blood Pressure [Right Upper Arm] 138/65 Pulse Oximetry 95 88 89 Oxygen Delivery Method Room Air Room Air Room Air Oxygen Flow Rate 01/19/23 00:46 01/19/23 01:25 01/19/23 01:49 Temperature 98.0 F Pulse Rate [Left Pulse Oximeter] Pulse Rate [Pulse Oximeter] 70 Respiratory Rate 20 16 Blood Pressure [Right Arm] 129/67 Blood Pressure [Right Upper Arm] 141/67 H Pulse Oximetry 98 97 Oxygen Delivery Method Nasal Cannula Room Air Oxygen Flow Rate 2 01/19/23 01:49 01/19/23 03:00 01/19/23 08:30 Temperature 98.0 F 98.0 F Pulse Rate [Left Pulse Oximeter] 63 86 Pulse Rate [Pulse Oximeter] Respiratory Rate 16 16 Blood Pressure [Right Arm] 129/67 152/76 H Blood Pressure [Right Upper Arm] Pulse Oximetry 97 97 98 Oxygen Delivery Method Room Air Room Air Room Air Oxygen Flow Rate 01/19/23 09:40 01/19/23 11:46 Temperature Pulse Rate [Left Pulse Oximeter] 63 60 Pulse Rate [Pulse Oximeter] Respiratory Rate 16 16 Blood Pressure [Right Arm] 133/49 L Blood Pressure [Right Upper Arm] Pulse Oximetry 98 Oxygen Delivery Method Room Air Oxygen Flow Rate Assessment and Plan Assessment and plan (1) Status post right knee replacement: Problem details: 01/17/2023 Status: Acute Assessment and Plan: Plan for discharge is today to home. Plan is to transition to oral pain medication prior to discharging to home. She has Dilaudid at home, for yesterday afternoon I E scribed 10 tablets to her pharmacy. She plans to discontinue her oxycodone and take the Dilaudid, once that is gone she will transition back to oxycodone. 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 She has had gastric bypass. She can take an occasional ibuprofen along with her other medications if she needs more pain relief. She will also take Tylenol. DVT prophylaxis includes aspirin 81 mg twice daily x1 month, Vince stockings x1 month may remove for 1 hr per day, frequent ambulation Remove dressing in 1 week. Observe wound and phone Orthopedics with any questions or concerns Return to clinic in 1 week for a wound check Return to clinic in 6 weeks with surgeon Minimize narcotic use. Wean off and discontinue soon as possible. Activities as tolerated. No strenuous activity. Outpatient physical therapy as scheduled. Ice and elevate the operative extremity. No restriction on ice. (2) Post-operative pain: Status: Acute (3) Thrush: Status: Acute
--- NOTE | 2023-01-19 14:16 | P.NB_ITS ---
Nerve Block Nerve Block Time Seen by Provider: 13:45 Date Seen: 01/19/23 Type of block requested by surgeon for post-operative analgesia: adductor canal Side: right Time out performed: Yes Verification of patient name: Yes Verification of date of : Yes Name of person performing procedure: Sarah Cande Continuous monitoring Was continuous monitoring of O2 sat, B/P, electrolog operator, recorded every 15 minutes?: Yes Procedure Checklist: sterile prep and needles Ultrasound guided. Images saved: Yes Medications given in 5ml increments after negative aspiration: Marcaine %: 0.5 mL: 20 Needle gauge: 20 Decadron (mg): 10 Precedex (mcg): 25 Patient tolerated procedure well: Yes Block Charges Block Charge (with Pro Fee): Other Periph Nerve Block (adductor canal) Use of Ultrasound Machine for Block: Yes- US Guidance/pain block
--- NOTE | 2023-01-19 14:45 | PM.EN ---
Chart Event Note Time Seen by Provider: 10:30 Date Seen: 01/19/23 Chart Event Note: In addition to analgesics adjustments made by the patient's primary service, Orthopedic surgery team, I made the following additional adjustments: 1. Stop as needed acetaminophen; 2. Begin scheduled acetaminophen 650 mg p.o. q.i.d. for the next 2 weeks and then p.r.n. thereafter; 3. Initiate hydroxyzine 25 mg p.o. q.i.d. p.r.n. for pain; 4. Initiate celecoxib 200 mg p.o. once daily for 5 days only. NSAIDs are relatively contraindicated in this patient given her history of gastric bypass, hence I prescribed a lower dose and for only short, limited period of time, with concurrent PPI, omeprazole; 5. Omeprazole 30 mg p.o. once daily for 2 weeks to lower her risk of peptic ulcer from exposure to NSAID. I reviewed the above with the patient and with KINJAL Lovell. Hospitalists appreciate the opportunity to see this patient in consultation for orthopedic surgery. Hospitalists will sign off this orthopedic surgery patient for now and be available should Orthopedic surgery have any additional questions or concerns that we can address.
[2023-01-19] MEDS: 0.9 % SODIUM CHLORIDE 500 ML 500 ML IV (17:05)
--- NOTE | 2023-01-19 18:29 | PC.NURSE ---
Discharge Note: Patient had RTK on 01/17/23 returned to hospital last night due to uncontrolled pain. Pain relief with scheduled Tylenol, visceral, and PRN ultram given 1 time. Rates her pain is tolerable at a 4/10. R knee is open to air, no drainage or erythema. Mild swelling, PO intake is adequate and voiding well. Pt was quite drowsy and out of it after her nerve block this afternoon, also had a few low BP's... A 500 ml bolus was ordered and given prior to discharge. All discharge instructions were reviewed and given to the patient. Educated on non pharmacologic techniques to pain management as well as pain medication. Discharged via wheelchair see dx assessment for time
== END 2023-01-19 18:52 | disposition home or self-care (01) ==
LOC: ED 01-19 01:04 → MEDSURG 01-19 01:27
PROVIDERS: Internal Medicine; Admitting Provider Family Medicine; Emergency Provider Family Medicine; PCP Family Medicine; Visit Provider Family Medicine
DX: M25.462 Effusion, left knee (principal); G89.18 Other acute postprocedural pain; M25.562 Pain in left knee; B37.0 Candidal stomatitis; D72.829 Elevated white blood cell count, unspecified; K21.9 Gastro-esophageal reflux disease without esophagitis; L53.8 Other specified erythematous conditions; Z96.651 Presence of right artificial knee joint; Z98.891 History of uterine scar from previous surgery; Z90.711 Acquired absence of uterus with remaining cervical stump; Z90.49 Acquired absence of other specified parts of digestive tract; Z98.84 Bariatric surgery status; Z98.890 Other specified postprocedural states
CPT/HCPCS: 36415; 64450; 76942; 82565; 85025; 86140; 96361; 96365; 96375; 97110; 97116; 97162; 97165; 97535; 99284; 99285; A9270; G0378; J1170; J1200; J1885; J2060; J3490; J7030; J7120

== ENCOUNTER 2023-05-31 15:45 | Outpatient (RCR) | payer BC, OTHER, MEDICAID, SELFPAY | END 2023-05-31 16:43 | disposition home or self-care (01) | PROVIDERS: PCP Family Medicine; Visit Provider Orthopaedic Surgery | DX: M17.11 Unilateral primary osteoarthritis, right knee (principal); Z51.89 Encounter for other specified aftercare; M62.81 Muscle weakness (generalized); Z47.1 Aftercare following joint replacement surgery | CPT/HCPCS: 97110; 97112; 97140; 97161; 97164; 97530 ==

== ENCOUNTER 2024-03-12 09:59 | Day surgery (SDC) | payer BC, SELFPAY ==
[2024-03-12] VITALS (12 sets, daily range): BP systolic 83–136; BP diastolic 43–81; PULSE 40–55; RESP 14–18; TEMP 36.2–36.7; O2SAT 96–100; BMI 37.0
--- OUTSIDE RECORDS SUMMARY | 2024-03-12 10:01 | XMS_ITS | Clinical Summary ---
Author Organization [facility] Address [place], [place] [address] Care Team Providers Care Certified Surgical First Assistant Name Role Phone Laureano Alcazar MD Primary Care Provider [phone] Allergies Active Allergy Reactions Criticality Noted Date Comments Adhesive Hives,Rash 08/21/2009 Steri Strips Ok with paper tape for short periods Nsaids (Non-Steroidal Anti-Inflammatory Drug) Other - Describe In Comment Field 08/13/2009 Pt had gastric bypass surgery, should not take oral NSAIDS. Hydrocodone-Acetamino phen Edema 01/22/2008 Lips swell Medications Medication Sig Dispensed Refills Start Date End Date Status ferrous sulfate, 65 mg elemental, 325 mg (65 mg Iron) tablet Take 325 mg by mouth once daily with a meal. Active CALCIUM CITRATE/VITAMIN D3 (CALCIUM CITRATE + D ORAL) Take 2,000 mg by mouth. Take 2000 mg daily in three divided doses 09/03/2009 Active multivitamin (MVI) tabletIndications:S/ P gastric bypass Take 1 tablet by mouth once daily. 0 10/18/2019 Active vitamin B complex (Vitamins B Complex) tablet Use 3 times weekly. Dissolvable- sublingual 90 Tablet 01/13/2023 Active Pain Reliever, acetaminophen, 325 mg tablet TAKE TWO TABLETS BY MOUTH FOUR TIMES DAILY* 01/19/2023 Active hydroCHLOROthiazide 12.5 mg tabletIndications:Pr imary hypertension Take 1 Tablet (12.5 mg) by mouth once daily. 90 Tablet 3 01/22/2024 Active levothyroxine (SYNTHROID) 112 mcg tabletIndications:Ac quired hypothyroidism Take 1 Tablet (112 mcg) by mouth once daily. 90 Tablet 3 01/22/2024 Active lisinopriL (PRINIVIL; ZESTRIL) 20 mg tabletIndications:Pr imary hypertension Take 1 Tablet (20 mg) by mouth once daily. 90 Tablet 3 01/22/2024 Active amoxicillin-clavulan ate (AUGMENTIN) 875-125 mg tabletIndications:Ac [place] non-recurrent sinusitis, unspecified location Take 1 Tablet by mouth two times daily with meals for 7 days. 14 Tablet 02/23/2024 03/01/2024 fluconazole (DIFLUCAN) 150 mg tabletIndications:Ye ast vaginitis Take 1 Tablet (150 mg) by mouth one time for 1 dose. May repeat the dose in one week if symptoms persist. 2 Tablet 02/23/2024 02/23/2024 Active Problems Problem Noted Date Diagnosed Date Reed's cyst of knee 11/18/2021 Adenomatous colon polyp 11/30/2020 Overview (11/30/2020): Colonoscopy 11/2020 2 TA 1 SSA, repeat in 5 years S/P gastric bypass 08/12/2009 Overview (03/08/2010): Dr Becker HTN (hypertension) Hypothyroidism Nodular basal cell carcinoma Overview (12/16/2011): right forearm Elevated PTHrP level Overview (05/27/2012): Dr Plummer Obesity Raynaud's syndrome Overview (06/18/2014): right middle digit Resolved Problems Problem Noted Date Diagnosed Date Resolved Date Previous section 10/07/2008 Supervision of high-risk pre gnancy of elderly multigravida 05/27/2008 12/23/2011 Uterine fibroid 10/02/2018 Morbid obesity 05/08/2013 Anemia 10/02/2018 RLS (restless legs syndrome) 05/04/2012 Menorrhagia 11/14/2013 Encounters Date Type Department Care Team Description 03/04/2024 4:20 PM RECEIVING INSPECTOR Ancillary Procedure [facility] [address] [place] [address] 03/04/2024 Travel 03/02/2024 Travel 03/01/2024 7:00 AM RECEIVING INSPECTOR Preop Visit [facility] [address] [place] [address] Laureano Alcazar MD Preoperative Exam (RIGHT Knee Surgery) 03/01/2024 Travel 02/25/2024 Travel 02/23/2024 10:00 AM CDT Telemedicine [facility] [address] [place] [address] Faby Whittington PA Telehealth (Sinus symptoms) 02/22/2024 Travel 01/22/2024 3:55 PM CDT Office Visit [facility] [address] [place] [address] Laureano Alcazar MD Medication Management (Review all medication's ); Immunization/Injecti on; Immunization/Injecti on (COVID-19 vaccine) 01/22/2024 Travel 01/18/2024 Travel from Last 3 Months Immunizations Name Administration Dates Next Due AMB Influenza, IIV3 (Age >=3 years)(Flu Clinic Only) 03/07/2008 AMB Influenza, IIV4 PF (=>6 mos Flulaval,Fluzone Fluarix)(Flu Clinic Only) 02/08/2019,02/08/2018,02/25/2017 COVID-19 VACCINE SPIKEVAX (M ODERNA 50MCG/0.5ML) 12YO+ PFS 01/22/2024 INFLUENZA, IIV3 PF (AGE >= 6 MO) 01/22/2024 Influenza A (H1N1), Inactiva jose f (Age >=3 Years) 03/18/2009 Influenza RIV4 (Age 18+ Year s) PRESERV FREE 02/06/2022 Influenza, IIV3 (Age >=3 years) 02/26/20 13,05/04/2012,04/07/2011,2009,01/26/2009,03/07/2008,03/21/2006,1 04/24/2004,03/13/2003 Influenza, IIV4 03/06/2023,,02/14/2020,2015,02/06/2015,03/28/2014 MMR 12/06/2008 Pneumococcal Poly,23-Valent (Pneumovax) 02/22/2005 Td (Age >=7 Years) 09/30/2007,01/17/2005, 995 Tdap 10/09/2013 Zoster (Shingrix-RZV, recombinant) 05/07/2020, Family History Medical History Relation Name Comments Hypertension Brother Hyperlipidemia Father Hypertension Father Hypertension Mother Heart Disease Paternal Aunt [place] 53 (o verweight) Cancer-prostate Paternal Grandfather Other Son 1 ADEM's syndrome No Known Problems Son 2 Anesthesia Problem No Family History Blood Disease No Family History Cancer-breast No Family History Cancer-colon No Family History Cancer-ovarian No Family History Relation Name Status Comments Brother Alive Father Alive Maternal Grandfather (Age 80's ) old age Maternal Grandmother (Age 80's) old age Mother Alive Paternal Aunt Paternal Grandfather (Age 60) pr ostate cancer Paternal Grandmother (Age 80's) old age Son 1 Alive Son 2 Alive Social History Tobacco Use Types Packs/Day Years Used Date Smoking Tobacco: Never Smokeless Tobacco: Never Tobacco Cessation:Counseling Given: Yes Comments:no exposure Alcohol Use Standard Drinks/Week Comments Not Currently 0 (1 standard drink = 0.6 oz pur e alcohol) 1/month PHQ-2 Answer Date Recorded PHQ-2 TOTAL SCORE 0 01/22/2024 Social Connections Answer Date Recorded Do you often feel lonely or isolated from those around you? 0 01/18/2024 Financial Resource Strain Answer Date R ecorded Difficulty of Paying Living Expenses 3 01/18/2024 Difficulty of Paying Living Expenses Not on file 01/18/2024 Food Insecurity Answer Date Recorded Do you worry your food will run out before you are able to buy more? 1 01/18/2024 Transportation Needs Answer Date Record ed Does lack of transportation keep you from medica l appointments? 1 01/18/2024 Does lack of transportation keep you from work, meetings or getting things that you need? 1 01/18/2024 Housing Stability Answer Date Recorded What is your housing situation today? 1 01/18/2024 Sex and Gender Information Value Date Recorded Sex Assigned at Female 10/18/2019 8:37 AM CDT Gender Identity Female 10/18/2019 8:37 AM CDT Sexual Orientation Straight 10/18/2019 8: 37 AM CDT Obstetrics History Para Term AB IAB SAB Ectopic Multiple Livin g Live Births 3 2 2 1 1 2 2 Date Outcome GA Total Labor Labor/2nd/3rd Weight Sex Type Anes PTL Anika A1 A5 Name Clin SAB 2003 Term 39w 0d 17h 00m/ 3.03 kg (6 lb 11 oz) [facility] Brito Comments:c/s for CPD 2008 Term 38w 4d 3.15 kg (6 lb 15 oz) [facility] Serrano ths Comments:repeat Last Filed Vital Signs Vital Sign Reading Time Taken Comments Blood Pressure 107/67 03/01/2024 7:03 AM RECEIVING INSPECTOR Pulse 49 03/01/2024 7:03 AM RECEIVING INSPECTOR Temperature 36.9 C (98.4 F) 01/30/2023 2:06 PM CDT Respiratory Rate 18 07/04/2016 10:02 AM CDT Oxygen Saturation 100% 03/01/2024 7:03 AM RECEIVING INSPECTOR Inhaled Oxygen Concentration - - Weight 94.9 kg (209 lb 3.2 oz) 03/01/2024 7:03 A M RECEIVING INSPECTOR Height 160 cm (5' 3) 03/01/2024 7:03 AM RECEIVING INSPECTOR Body Mass Index 37.06 03/01/2024 7:03 AM RECEIVING INSPECTOR Plan of Treatment Health Maintenance Due Date Last Done Comments Pap test for age 21-65 10/03/2023 9, 10/02/2018, 06/08/2015, Additional history exists Tetanus booster 10/10/2023 10/09/2013, 06/11/2007, 01/17/2005, Additional history exists Depression screening for age 12+ 01/21/2025 01/22/2024, 12/02/2022, 11/18/2021, Additional history exists BMI (ht and wt on same day) for age 18+ 03/01/2025 03/01/2024, 01/30/2023, 01/13/2023, Additional history exists Mammogram for age 45-75 03/04/2025 03/04/20 24, 01/04/2023, 11/29/2021, Additional history exists Colonoscopy through age 75 11/26/2025 11/26/2020, Lipids for age 45-75 11/17/2026 11/17/2021, 11/20/2020, 11/04/2019, Additional history exists Pneumococcal series for age 6-64 Aged Out 02/22/2005 No longer eligible based on patient's age to complete this topic HIV for age 15-65 Completed 04/29/2008 Tdap Completed 10/09/2013, 10/09/2013 Zoster (shingles) series for age 50+ Completed 05/07/2020, 02/14/2020 Hepatitis C screening for age 18-79 Completed 11/17/2021 COVID-19 vaccine series Completed 01/22/20, 03/06/2023, 02/07/2022, Additional history exists Influenza for age 50-64 Completed 01/22/20, 03/06/2023, 02/06/2022, Additional history exists Medical Devices Implanted Type Area Hospitalist Program Director Device Identifier Shelf Expiration Date Model / Serial / Lot Graft Alloderm 4x12cm Acellular Dermal - [id number] Implanted:Qty: 1 on 08/12/2009 at [facility] Explanted:at [facility] (Quantity not on file) Stomach [employer] [id number] / [id number] / Procedures Procedure Name Priority Date/Time Associated Diagnosis Comments XR MAMMO BILAT SCREENING Routine 03/04/2024 4:29 PM RECEIVING INSPECTOR Visit for screening mammogram POTASSIUM Routine 03/01/2024 7:36 AM RECEIVING INSPECTOR Primary hypertension BASIC METABOLIC PANEL Routine 01/22/2024 4:52 PM CDT Primary hypertension TSH Routine 01/22/2024 4:52 PM CDT Acquired hypothyroidism ANTI HCV Routine 11/17/2021 3:47 PM CDT Need for hepatitis C screening test LIPID PANEL W REFLEX MEASURED LDL Routine 11/17/2021 3:47 PM CDT Screening for lipid disorders COLONOSCOPY 11/26/2020 10:36 AM CDT 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 Recommend annual mammograms. MAMMOGRAM ASSESSMENT: ACR 1 Negative PATIENTS: You will also receive a letter with your examination results in an easy to read format. If you have questions about your results, please contact your referring provider. Narrative 03/05/2024 3:51 PM RECEIVING INSPECTOR For Patients: As a result of the Century Cures Act, medical imaging exams and procedure reports are released immediately into your electronic medical record. You may view this report before your referring provider. If you have questions, please contact your health care provider. XR MAMMO BILAT SCREENING [[id number]] CLINICAL HISTORY: This is an asymptomatic 53 y.o. patient. INDICATION FOR EXAM: Mammogram Screening. TECHNIQUE: CC & MLO views were obtained. This study was evaluated with the assistance of Computer-Aided Detection. COMPARISON FILM: Yes 01/04/23 [facility] 11/29/21 [facility] FINDINGS: There are scattered areas of fibroglandular density. There are no dominant masses, suspicious micro calcifications or areas of architectural distortion. Laureano Alcazar MD MAMMO * POTASSIUM (03/01/2024 7:36 AM RECEIVING INSPECTOR) POTASSIUM 4.7 3.5 - 5.3 mmol/L [facility] Blood BLOOD SPECIMEN / Unknown 03/01/2024 7:36 AM RECEIVING INSPECTOR 03/01/2024 7:37 AM RECEIVING INSPECTOR Laureano Alcazar MD CHEMISTRY Performing Organization Address [facility] de Phone Number Geron [facility] [address] [place] [address], [facility] [address] [place] [address] * TSH (01/22/2024 4:52 PM CDT) Pathologist [facility] TSH 1.10 mIU/L [facility] Comment: Reference Range > or = 20 Years 0.40-4.50 Ranges First trimester 0.26-2.66 Second trimester 0.55-2.73 Third trimester 0.43-2.91 Blood BLOOD SPECIMEN / Unknown 01/22/2024 4:52 PM CDT 01/22/2024 4:53 PM CDT Narrative [facility] - 01/23/2024 5:52 AM CDT FASTING:UNKNOWN FASTING: UNKNOWN Laureano Alcazar MD CHEMISTRY Performing Organization Address [facility] Co de Phone Number Geron [facility] [address] [place] [address], [facility] [address] [place] [address] * (ABNORMAL) BASIC METABOLIC PANEL (01/22/2024 4:52 PM CDT) Pathologist [facility] GLUCOSE 88 65 - 99 mg/dL [facility] Comment: Fasting reference interval UREA NITROGEN (BUN) 26(H) 7 - 25 mg/dL [facility] CREATININE 1.05(H) 0.50 - 1.03 mg/dL [facility] EGFR 63 > OR = 60 mL/min/1.7 3m2 [facility] BUN/CREATININE RATIO 25(H) 6 - 22 (calc) [facility] SODIUM 135 135 - 146 mmol/L [facility] POTASSIUM 4.6 3.5 - 5.3 mmol/L [facility] CHLORIDE 100 98 - 110 mmol/L [facility] CARBON DIOXIDE 25 20 - 32 mmol/L [facility] ELECTROLYTE BALANCE 10 7 - 17 mmol/L (calc) [facility] CALCIUM 9.9 8.6 - 10.4 mg/dL [facility] Blood BLOOD SPECIMEN / Unknown 01/22/2024 4:52 PM CDT 01/22/2024 4:53 PM CDT Narrative [facility] - 01/23/2024 6:23 AM CDT FASTING:UNKNOWN FASTING: UNKNOWN Laureano Alcazar MD CHEMISTRY G[facility] [address] [place] [address], [facility] [address] [place] [address] * LIPID PANEL W REFLEX MEASURED LDL (11/17/2021 3:47 PM CDT) [facility] CHOLESTEROL,TOTAL 156 100 - 199 mg/dL 11/17/2021 9:03 PM CDT [facility] TRIGLYCERIDES 139 <150 mg/dL 11/17/2021 9:03 PM CDT [facility] HDL CHOLESTEROL 51 >40 mg/dL 9:03 PM CDT [facility] NON-HDL CHOLESTEROL 105 <145 mg/dl 11/17/2021 9:03 PM CDT [facility] CHOL/HDL RATIO 3.06 <4.50 11/17/2021 9:03 PM CDT [facility] LDL CHOLESTEROL 77 <=130 mg/dL 11/17/2021 9:03 PM CDT [facility] VLDL CHOLESTEROL 28 <=30 mg/dL 11/17/2021 9:03 PM CDT [facility] PROVIDER ORDERED STATUS RANDOM 11/17/2021 9:03 PM CDT [facility] Blood BLOOD SPECIMEN / Unknown Venipuncture / Unknown 11/17/2021 3:47 PM CDT 11/17/2021 3:47 PM CDT Faby LAYTON CHEMISTRY [facility] [address] [place] [address], [place] * ANTI HCV (11/17/2021 3:47 PM CDT) HEPATITIS C ANTIBODY Non-React en Non-React en 11/17/2021 10:44 PM CDT [facility] Comment:Antibodies to HCV no t detected; does not exclude the possibility of exposure to HCV. Blood BLOOD SPECIMEN / Unknown Venipuncture / Unknown 11/17/2021 3:47 PM CDT 11/17/2021 3:47 PM CDT Faby LAYTON SEND OUTS [facility] [address] [place] [address], [place] * COLONOSCOPY (11/26/2020 10:36 AM CDT) 11/26/2020 10:3 6 AM CDT Narrative Transcriptions Vance Wyatt MD - 11/26/2020 11:10 AM CDT Patient Name: Ceci Borjas Procedure Date: 11/26/2020 Gender: Female Date of : 1970 Admit Type: Outpatient Procedure: Colonoscopy Proceduralist: Vance Wyatt MD , Jennyfer June (Nurse) Indications/Pre-Op Diagnosis: Screening for colorectal malignant neoplasm, This is the patient's first colonoscopy Medications: Fentanyl 100 micrograms IV, Midazolam 4 mgIV Procedure Description: The patient had risks, benefits and alternatives explained to andgave informed consent. The patient had a stable cardiopulmonary status and judged an adequate candidate for conscious sedation. The Colonoscope was passed through the anus and advanced to theterminal ileum, with identification of the appendiceal orifice and IC valve.The colonoscopy was performed without difficulty. The patient toleratedthe procedure well. The quality of the bowel preparation was good. The ileocecal valve, appendiceal orifice, and rectum were photographed. Complications: No immediate complications. Estimated Blood Loss & Specimen: Estimated blood loss: none. Specimen collected - Yes and sent to Laboratory Findings: The perianal and digital rectal examinations were normal. A 4 mm polyp was found in the sigmoid colon. The polyp was sessile.The polyp was removed with a cold snare. Resection and retrieval were complete. Two sessile polyps were found in the transverse colon. The polypswere 3 to 4 mm in size. These polyps were removed with a cold snare.Resection and retrieval were complete. The exam was otherwise without abnormality on direct and retroflexion views. Impressions/Post-Op Diagnosis: - One 4 mm polyp in the sigmoid colon, removed with a cold snare. Resected and retrieved. - Two 3 to 4 mm polyps in the transverse colon, removed with a cold snare. Resected and retrieved. - The examination was otherwise normal on direct and retroflexionviews. Recommendation: - Patient has a contact number available for emergencies. The signsand symptoms of potential delayed complications were discussed with the patient. Return to normal activities tomorrow. Written discharge instructions were provided to the patient. - Resume previous diet. - Continue present medications. - Await pathology results. - Repeat colonoscopy is recommended. The colonoscopy date will be determined after pathology results from today's exam become available for review. Moderate Sedation: Moderate (conscious) sedation was administered by the endoscopy nurse and supervised by the endoscopist. The following parameters were monitored: oxygen saturation, heart rate, respiratory rate, blood pressure, adequacy of pulmonary ventilation and reponse to care. Please refer to the patient's medical record flowsheets and nursing notes for moderate sedation details. Total physician intraservice time was 16 minutes. Vance Wyatt MD 11/26/2020 11:10:28 AM This report has been signed electronically. Note Initiated On: 11/26/2020 10:36 AM Procedure Code(s): --- Professional --- 54510, Colonoscopy, flexible; with removalof tumor(s), polyp(s), or other lesion(s) bysnare technique Diagnosis Code(s): --- Professional --- K63.5, Polyp of colon Z12.11, Encounter for screening formalignant neoplasm of colon CPT copyright 2020 [employer]. All rights reserved. The codes documented in this report are preliminary and upon demi chef reviewmay be revised to meet current compliance requirements. Scope In: 10:49:54 AM Scope Withdrawal Time 0 hours 11 minutes 5 seconds Scope Out: 11:03:40 AM Vance Wyatt MD PROCEDURE ORD * MOTOR COACH BUS DRIVER THIN PREP PAP SCREEN IMAGED (10/02/2018 9:17 AM CDT) Case Report Gynecologic Cytology Report Case: [id number] Authorizing Provider: Faby Whittington PA Collected: 10/02/2018 0917 Ordering Location: [facility] Received: 10/02/2018 0937 Clinic First Screen: Minda Kay Specimen: MOTOR COACH BUS DRIVER ThinPrep Vial Screening, Cervical 10/08/2018 2:22 PM CDT [facility] INTERPRETATION/ RESULT NEGATIVE FOR INTRAEPITHELIAL LESION OR MALIGNANCY (NIL) (none) 10/08/2018 2:22 PM CDT [facility] IMEN ADEQUACY Satisfactory for evaluation No endocervical component seen 10/08/2018 2:22 PM CDT [facility] HPV REQUEST HPV and PAP 10/08/2018 2:22 PM CDT [facility] Date of LMP 2014 10/08/2018 2:22 PM CDT [facility] Last Pap Date 06/08/15 10/08/2018 2:22 PM CDT [facility] Last Pap Result NIL 9 2:22 PM CDT [facility] Abnormal Pap or Dubach Bx in last 5 years No 10/08/2018 2:22 PM CDT [facility] Menstrual Status Hysterectomy-cerv ix present 10/08/2018 2:22 PM CDT [facility] Dubach Bx Done Today No 10/08/2018 2:22 PM CDT [facility] Additional Information None given 10/08/2018 2:22 PM CDT [facility] Automated Review Successful 10/08/2018 2:22 PM CDT [facility] Comment:Specimen processed s uccessfully by automated equipment service associate device, ThinPrep Imaging System, [employer] ANCILLARY TESTING MOTOR COACH BUS DRIVER HPV Ordered, Please see separate report 10/08/2018 2:22 PM CDT [facility] Note The pap test is a screening technique, not a diagnostic procedure. It is used primarily to screen for squamous cancers and precursor lesions. Published studies have shown that it is subject to both false negative and false positive results. The pap test should not be used as the sole means to diagnose or exclude pre-malignant and malignant lesions. Cytology is screened and interpreted at [facility], [facility] - [address], [place] [address] and [facility] - [address] [place] [address]; [place] [address] and [facility] - [address]; [place] [address] and [facility] [address]; [place] [id number] 10/08/2018 2:22 PM CDT [facility] Other (Cervical) Non-Blood / Unknown 10/02/2018 9:17 AM CDT 10/02/2018 9:37 AM CDT Faby LAYTON PATHOLOGY/CYTOLOGY [facility] [address] [place] [address], * ANTI HIV 1/2 [21729.0] (04/29/2008 5:25 PM RECEIVING INSPECTOR) ANTI HIV 1/2 Non-reacti ve [facility] Blood specimen (specimen) BLOOD SPECIMEN / Unknown 04/29/2008 5:25 PM RECEIVING INSPECTOR 04/29/2008 5:18 PM RECEIVING INSPECTOR Sandy Powers MD SEND OUTS [facility] INTERNAL ZIP [address] [address] from Last 3 Months or Most Recently Relevant to Health Maintenance Advance Directives * Full Code (Latest Code Status on File) Date Activated Date Inactivated Comments 10/28/2013 8:41 AM 10/29/2013 12:12 PM * Full Code Date Activated Date Inactivated Comments 10/28/2013 6:14 AM 10/28/2013 8:35 AM * Full Code Date Activated Date Inactivated Comments 05/24/2013 8:00 AM 05/24/2013 1:31 PM * Full Code Date Activated Date Inactivated Comments 08/12/2009 8:39 AM 08/13/2009 3:30 PM * Full Code Date Activated Date Inactivated Comments 12/05/2008 7:18 AM 12/05/2008 8:21 PM Care Teams Certified Surgical First Assistant Relationship Specialty Start Date End Date Laureano Alcazar [place] [address] PCP - General Family Practice 12/02/22
[2024-03-12] MEDS: SODIUM CHLORIDE 0.9 % (FLUSH) 10 ML SYRINGE IVF (10:19)
[2024-03-12] MEDS: CEFAZOLIN 2 GM INJ IVP (11:10)
--- NOTE | 2024-03-12 11:53 | W.ANESCHARGE ---
Anesthesia Charges Start Date/Time Anesthesia Start Date: 03/12/24 Anesthesia Start Time: 11:02 Stop Date/Time Anesthesia Stop Date: 03/12/24 Anesthesia Stop Time: 12:08
[2024-03-12] MEDS: BUPIVACAINE 0.25% 30 ML INJECTION (11:54)
--- NOTE | 2024-03-12 11:57 | PM.ORPRC ---
Procedure Note Date of procedure: 03/12/24 Procedure: PREOPERATIVE DIAGNOSIS: Right total knee arthroplasty patellar clunk syndrome POSTOPERATIVE DIAGNOSIS: Right total knee arthroplasty patellar clunk syndrome NAME OF OPERATION: Right total knee arthroplasty arthroscopic debridement SURGEON: Brian Bautista MD HOSPITALITY TEAM MEMBER: GUANACO Kearns ANESTHESIA: Spinal ESTIMATED BLOOD LOSS: 0 mL COMPLICATIONS: None SPECIMENS: None DRAINS: None PREOPERATIVE ANTIBIOTICS: Ancef 2 gram INDICATIONS: The patient is a 53-year-old female with a history of right total knee arthroplasty patellar clunk syndrome. Operative intervention was recommended. The risks, benefits and expected outcomes were discussed in detail. These included but were not limited to: Infection, bleeding, injury to blood vessel or nerve, venous thromboembolism. All questions were answered to their satisfaction. PROCEDURE: Spinal anesthesia was administered. The patient was placed supine on the operating room table. The right lower extremity was prepped and draped in the usual sterile fashion. The limb was exsanguinated with the Vance bandage. The pneumatic tourniquet was inflated to 300 mmHg. A standard anterolateral portal was established. The arthroscope was introduced. The working portal was established anteromedially. Diagnostic arthroscopy was performed with findings as follows: The patellar component is intact with circumferential scarring surrounding it. The femoral component is normal, the tibial polyethylene is normal. The scarring posterior to ther patellar tendon was debrided with the radiofrequency probe and shaver. A superolateral portal was placed. Then we aggressively debrided around the patellar component and posterior to the quads tendon with the shaver and radiofrequency probe. Arthroscopic instruments were removed, the portal sites were closed with a 3-0 nylon. Portals were injected with 0.25% Marcaine without epinephrine. A dry dressing was applied, the tourniquet was released. Sponge and needle counts were correct x 2. The patient tolerated the procedure well. There were no apparent complications. They were carefully transferred to the hospital bed and taken to the postanesthesia care unit in satisfactory condition. PLAN: The patient will be discharged to home. They may weightbear as tolerates. Range of motion will be unrestricted. They will follow up in the office in 2 weeks for a wound check and suture removal.
--- NOTE | 2024-03-12 12:08 | W.ANESCHARGE ---
Anesthesia Charges Start Date/Time Anesthesia Start Date: 03/12/24 Anesthesia Start Time: 11:02 Stop Date/Time Anesthesia Stop Date: 03/12/24 Anesthesia Stop Time: 12:08
--- NOTE | 2024-03-12 12:36 | SUR.PHASEI ---
patient met discharge criteria per anesthesia
== END 2024-03-12 13:48 | disposition home or self-care (01) ==
PROVIDERS: PCP Family Medicine; Visit Provider Orthopaedic Surgery
PROC: (CPT 29870; principal; 2024-03-12 12:30)
DX: M25.861 Other specified joint disorders, right knee (principal); Z96.651 Presence of right artificial knee joint
CPT/HCPCS: 29877; 01400; J0665; J0690; J1100; J1885; J2405; J2704